=== PATIENT | male | born 1970 | race Caucasian/White ===

== ENCOUNTER 2019-01-04 10:26 | Emergency (ER) | payer SELFPAY ==
[2019-01-04] MEDS ORDERED: MORPHINE SULFATE 10 MG/ML INJ IV ONE (11:01)
[2019-01-04] MEDS ORDERED: NORMAL SALINE 1000 ML 1,000 ML IV ONE (11:01)
[2019-01-04] MEDS ORDERED: ONDANSETRON HCL INJ/PF 4 MG/2 ML SDV IV ONE (11:01)
--- NOTE | 2019-01-04 11:03 | ER Document Report ---
ED Medical Screen (RME) - General Chief Complaint: Abdominal Pain Stated Complaint: ABDOMINAL PAIN Time Seen by Provider: 01/04/19 10:56 Primary Care Provider: COLE RIOS MD [Primary Care Provider] - Follow up as needed Mode of Arrival: Ambulatory Information source: Patient Notes: HPI: 48-year-old male with the listed pmh, here for ruq and rlq abdominal pain worsening for 2 days along with some nausea and nonbloody nonbilious vomiting, nonbloody diarrhea, and low grade fevers. states pain radiates posteriorly. he ate some fried fatty foods and made sx worse. no trauma or injury. no hx of diabetes or asthma. no uti sx. no testicular pain/swelling, penile dc/rash/lesions, or concerns for stds. denies swelling or hx of hernias. no abd surgeries other than a remote gastric bypass. no recent abx or steroids. hasn't taken anything for sx. no hx of gerd, gb dz, panceratitis, gi bleed, ulcers, ibs, or crohns. no hx of this before. no sick contacts. no uri sx. no rash. no excessive nsaid use or etoh. no recent illness. pain worse with eating. no other associated sx. denies taking any meds chronically. denies blood thinners. ROS neg to include 10 systems, unless mentioned in the hpi. PE:>>>> PHYSICAL_EXAM: GENERAL_APPEARANCE: well_nourished, alert, cooperative, no_acute_distress, mild_obvious_discomfort. pleasant, middle aged white male, smiling, speaking in full sentences, in no sign of pain or resp distress, at bedside VITALS: reviewed, see vital signs table. HEAD: no_swelling\tenderness on the head. normocephalic. atraumatic. no gutiérrez signs. no raccoons eyes. EYES: PERRL, EOMI, conjunctiva_clear. no scleral icterus NOSE: no_nasal_discharge. MOUTH: (-)decreased moisture. THROAT: no_tonsilar_inflammation, no_airway_obstruction. no_lymphadenopathy NECK: supple, no_neck_tenderness, full rom. full strength. no meningeal signs. BACK: no_back_tenderness. CHEST_WALL: no_chest_tenderness. no overlying skin changes LUNGS: no_wheezing, ctab (-)accessory muscle use, good air exchange bilateral. HEART: normal_rate, normal_rhythm, ABDOMEN: normal_BS, soft, mod ttp in the RUQ, mild ttp in the RLQ, (-)guar ding, (-)rebound, no distension or peritoneal signs. no cva ttp. questionably pos murphys sign. exam limited as pt seen in triage and was sitting and not able to perform abd exam with pt laying down. EXTREMITIES: strength 5/5 in all_extremities, good pulses in all_extremities, no_swelling\tenderness in the extremities, no_edema. full rom. normal gait. good pulses. 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 NEURO: motor and sensation intact, cranial nerves 2-12 intact, cerebellar fxn intact SKIN: warm, dry, good_color, no_rash. MENTAL_STATUS: speech_clear, oriented_X_3, normal_affect, responds_a ppropriately to questions. MDM: I have ordered labs and initial work-up and patient will be transferred to the main ER for further work-up. I have greeted and performed a rapid initial assessment of this patient. A comprehensive ED assessment and evaluation of the patient, analysis of test results and completion of medical decision making process will be conducted by an additional ED providers. Documentation achieved through voice recording which my lead to some occasional accidental typographical errors. Extensive efforts have been made to proof read documentation to make sure these are the least as possible Temp Pulse Resp BP Pulse Ox 01/04/19 10:30 98.3 F 78 13 138/81 H 100 Category Date Time Status NPO (ED) NOW Care 01/04/19 11:01 Active Gallbladder Ultrasound [U/S ABDOMEN LIMITED W/O DOP] [ Exams 01/04/19 11:02 Ordered US] Stat CBC WITH DIFF [HEME] Stat Lab 01/04/19 11:01 Ordered COMPREHENSIVE METABOLIC PANEL [CHEM] Stat Lab 01/04/19 11:01 Ordered LIPASE [CHEM] Stat Lab 01/04/19 11:01 Ordered URINALYSIS [URIN] Stat Lab 01/04/19 11:01 Uncollected Morphine Sulfate [Morphine 10 mg/ml Inj] Med 01/04/19 11:01 Discontinued 4 mg IV NOW ONE Normal Saline 1000 ml [NaCl 0.9% 1000 ml IV Soln] 1,000 Med 01/04/19 11:01 Discontinued ml IV BOLUS Ondansetron HCl/Pf [Zofran Inj/Pf 4 mg/2 ml Sdv] Med 01/04/19 11:01 Discontinued 4 mg IV NOW ONE TRAVEL OUTSIDE OF THE [place] IN LAST 30 DAYS: No - Related Data Allergies/Adverse Reactions: No Known Allergies Allergy (Verified 01/04/19 10:26) Past Medical History Past Surgical History: Reports: Hx Gastric Bypass Surgery Physical Exam - Vital signs Vitals: Temp Pulse Resp BP Pulse Ox 98.3 F 78 13 138/81 H 100 01/04/19 10:30 01/04/19 10:30 01/04/19 10:30 01/04/19 10:30 01/04/19 10:30 Course - Vital Signs Vital signs: Temp Pulse Resp BP Pulse Ox 98.3 F 78 13 138/81 H 100 01/04/19 10:30 01/04/19 10:30 01/04/19 10:30 01/04/19 10:30 01/04/19 10:30 Doctor's Discharge - Discharge Referrals: COLE RIOS MD [Primary Care Provider] - Follow up as needed
[2019-01-04 11:41] LABS: HEMATOCRIT 33.2 % (37.9-51.0); HEMOGLOBIN 10.1 g/dL (13.5-17.0); MEAN CORPUSCULAR HEMOGLOBIN 19.1 pg (27.0-33.4); MEAN CORPUSCULAR HGB CONC 30.4 g/dL (32.0-36.0); PLATELET COUNT 366 10^3/uL (150-450); RED BLOOD COUNT 5.29 10^6/uL (4.35-5.55); RED CELL DISTRIBUTION WIDTH 18.5 % (11.5-14.0); WHITE BLOOD COUNT 15.4 10^3/uL (4.0-10.5)
[2019-01-04 11:43] LABS: MEAN CORPUSCULAR VOLUME 63 fl (80-97)
--- NOTE | 2019-01-04 11:45 | ER Document Report ---
ED General - General Chief Complaint: Abdominal Pain Stated Complaint: ABDOMINAL PAIN Time Seen by Provider: 01/04/19 10:56 Primary Care Provider: COLE RIOS MD [ACTIVE STAFF] - Follow up as needed Mode of Arrival: Ambulatory Notes: 48-year-old male presents emergency department complaining of stabbing right upper quadrant pain since Thursday associated with nausea. Patient states that onset after eating some fried seafood and he was worried that it might be food poisoning however when the pain persisted he is now worried it might be his gallbladder. Patient did think it was may be related to constipation and he only had a small bowel movement yesterday morning so that he took magnesium citrate and now he has had a large amount of liquid stool but it has not improved his pain. Admits sweats and chills, denies documented fever. Denies history of pancreatitis or gallbladder problems. TRAVEL OUTSIDE OF THE [place] IN LAST 30 DAYS: No - Related Data Allergies/Adverse Reactions: No Known Allergies Allergy (Verified 01/04/19 10:26) Past Medical History - General Information source: Patient - Social History Smoking Status: Never Smoker Frequency of alcohol use: None Drug Abuse: None Family History: None Patient has suicidal ideation: No Patient has homicidal ideation: No Renal/ Medical History: Denies: Hx Peritoneal Dialysis Past Surgical History: Reports: Hx Gastric Bypass Surgery - Nas-en-Y Review of Systems - Review of Systems Constitutional: See HPI, Chills, Diaphoresis EENT: No symptoms reported Gastrointestinal: See HPI Genitourinary: No symptoms reported -: Yes All other systems reviewed and negative Physical Exam - Vital signs Vitals: Temp Pulse Resp BP Pulse Ox 98.3 F 78 13 138/81 H 100 01/04/19 10:30 01/04/19 10:30 01/04/19 10:30 01/04/19 10:30 01/04/19 10:30 - Notes Notes: GENERAL: Alert, interacts well. No acute distress. HEAD: Normocephalic, atraumatic EYES: Pupils equal, round and reactive to light, extraocular movements intact. ENT: Oral mucosa moist, tongue midline. NECK: Full range of motion, supple, trachea midline. LUNGS: Clear to auscultation bilaterally, no wheezes, rales or rhonchi, no respiratory distress. HEART: Regular rate and rhythm, no murmurs, gallops, rubs. ABDOMEN: Soft, right upper quadrant tenderness palpation without guarding, rigidity or rebounding, nondistended, bowel sounds present in all 4 quadrants. EXTREMITIES: Moves all 4 extremities spontaneously, no edema, radial and dorsalis pedis pulses 2/4 bilaterally. No cyanosis. NEUROLOGICAL: Alert and oriented x3, normal speech. PSYCH: Normal mood, normal affect. SKIN: Warm, Dry, normal turgor, no rashes or lesions noted. Course - Re-evaluation Re-evalutation: 01/04/19 13:11 CBC shows leukocytosis of 15.4, hemoglobin shows anemia with hemoglobin 10.1, platelets normal, urinalysis shows elevated creatinine at 1.73, normal creatin bharath available, lipase normal, urinalysis shows trace ketones, large blood, trace leukocyte esterase, greater than 182 WBCs. No evidence of active infection. Abdominal ultrasound does not show any problem with the gallbladder but there is some fullness the right renal pelvis without calyceal dilation. This is consistent when combined with the urine with a kidney stone which is likely causing the pain. No evidence of true obstruction, no indication for CT scan at this time. Patient will be provided with pain control, Flomax and other symptomatic relief medication and discharged home. - Vital Signs Vital signs: Temp Pulse Resp BP Pulse Ox 98.3 F 78 17 141/79 H 100 01/04/19 10:30 01/04/19 10:30 01/04/19 13:00 01/04/19 13:00 01/04/19 10:30 - Laboratory Result Diagrams: 01/04/19 11:30 01/04/19 11:30 Laboratory results interpreted by me: 01/04/19 01/04/19 01/04/19 11:30 11:30 12:30 WBC 15.4 H Hgb 10.1 L Hct 33.2 L MCV 63 L MCH 19.1 L MCHC 30.4 L RDW 18.5 H Seg Neuts % (Manual) 85 H Lymphocytes % (Manual) 2 L Abs Neuts (Manual) 13.1 H Abs Lymphs (Manual) 0.3 L Abs Monocytes (Manual) 2.0 H Creatinine 1.73 H Est GFR ( Amer) 51 L Est GFR (Non-Af Amer) 42 L Glucose 113 H Urine Protein 30 H Urine Ketones TRACE H Urine Blood LARGE H Ur Leukocyte Esterase TRACE H Urine Ascorbic Acid 40 H Discharge - Discharge Clinical Impression: Right ureteral calculus Condition: Stable Disposition: HOME, SELF-CARE Additional Instructions: Kidney Stone You are passing or have passed a kidney stone. These stones are usually due to increased calcium or uric acid concentrations in your urine. Stones within the kidney itself are not painful. The pain occurs as the stone leaves the kidney to pass down the long tube, called the ureter, leading to the bladder. If the stone is small, it will usually pass by itself. Most patients can pass the stone at home. You will usually receive medications for pain, nausea or vomiting, and sometimes a medication to assist in passing the kidney stone. However, if the pain is very severe or if vomiting prevents you from taking oral pain medications, you may need to return for further treatment. Drink three or four quarts of fluids per day. You will be given pain medication (if needed) and urine strainers. Strain all your urine to see if the stone passes. If your doctor has asked you to bring the stone in for analysis, return with the stone once it has passed. Return if pain or vomiting become severe, if you develop a high fever, if you are unable to pass your urine, or if other unusual symptoms occur. Please take ibuprofen 800 mg every 8 hours to help decrease your pain. If you continue to have pain despite taking this medication you may use the Percocet 1 tablet every 4 hours as needed for severe breakthrough pain. I have also prescribed you Zofran and Phenergan to help with the nausea. You should also take Pyridium, this is the same thing as Azo which is available [id number], it will help to numb your kidneys, ureters and bladder to decrease the pain as the stone moves. Finally we have prescribed Flomax, typically this is used to treat prostate problems but in this case may use it to help expand your ureters to help the kidney stone will pass more quickly. Please return to the emergency department for worsening pain, temperature of 100.4 greater or any new or concerning symptoms. Prescriptions: Ondansetron [Zofran Odt 4 mg Tablet] 1 - 2 tab PO Q4HP PRN #10 tab.rapdis PRN Reason: Ibuprofen [Motrin 800 mg Tablet] 800 mg PO Q8H PRN #30 tab PRN Reason: Oxycodone HCl/Acetaminophen [Percocet 5-325 mg Tablet] 1 - 2 tab PO Q4H PRN #15 tablet PRN Reason: Phenazopyridine HCl [Pyridium 200 mg Tablet] 200 mg PO TID #15 tablet Tamsulosin HCl [Flomax 0.4 mg Cap.sr] 0.4 mg PO DAILY #7 cap.sr.24h Referrals: COLE RIOS MD [ACTIVE STAFF] - Follow up as needed MYRIAM BENAVIDES MD [NO LOCAL MD] - Follow up as needed
[2019-01-04 12:07] LABS: ABSOLUTE LYMPHOCYTES# (MANUAL) 0.3 10^3/uL (0.5-4.7); BASOPHILS % (MANUAL) 0 % (0-2); EOSINOPHILS % (MANUAL) 0 % (0-6); LYMPHOCYTES % (MANUAL) 2 % (13-45); MONOCYTES % (MANUAL) 13 % (3-13); SEGMENTED NEUTROPHILS % (MAN) 85 % (42-78); TOTAL CELLS COUNTED 100
[2019-01-04 12:09] LABS: ALBUMIN 4.7 g/dL (3.5-5.0); ALKALINE PHOSPHATASE 58 U/L (38-126); ANION GAP 10 (5-19); ANISOCYTOSIS 1+; ASPARTATE AMINO TRANSFERASE 32 U/L (17-59); BILIRUBIN,DIRECT 0.2 mg/dL (0.0-0.4); BILIRUBIN,TOTAL 0.6 mg/dL (0.2-1.3); BLOOD UREA NITROGEN 16 mg/dL (7-20); CALCIUM 9.3 mg/dL (8.4-10.2); CARBON DIOXIDE 26 mmol/L (22-30); CHLORIDE 101 mmol/L (98-107); GLUCOSE 113 mg/dL (75-110); HYPOCHROMASIA 2+; OVALOCYTES 1+; POIKILOCYTOSIS SLIGHT; POLYCHROMASIA SLIGHT; POTASSIUM 3.8 mmol/L (3.6-5.0); TEAR DROP CELLS SLIGHT; TOTAL PROTEIN 7.7 g/dL (6.3-8.2)
[2019-01-04 12:16] LABS: PLATELET COMMENT ADEQUATE
--- NOTE | 2019-01-04 12:35 | RADIOLOGY REPORT (SQ) ---
EXAM DESCRIPTION: U/S ABDOMEN LIMITED W/O DOP COMPLETED DATE/TIME: 01/04/2019 12:23 pm REASON FOR STUDY: ruq abd pain COMPARISON: None. TECHNIQUE: Dynamic and static grayscale images acquired of the abdomen and recorded on PACS. Additio nal selected color Doppler and spectral images recorded. LIMITATIONS: Limited visualization secondary to scan window FINDINGS: PANCREAS: Not visualized. LIVER: No masses. Echotexture normal. LIVER VASCULATURE: Normal directional flow of the main portal vein and hepatic veins. GALLBLADDER: No stones. Normal wall thickness. No pericholecystic fluid. ULTRASOUND-DETECTED CHILDERS'S SIGN: Negative. INTRAHEPATIC DUCTS AND COMMON DUCT: CBD and intrahepatic ducts normal caliber. No filling defects. INFERIOR VENA CAVA: Normal flow. AORTA: No aneurysm. RIGHT KIDNEY: Kidney is normal in size measuring 11.7 cm. Mild fullness of the renal pelvis. No ca liceal dilation. No discrete mass. No calcifications. PERITONEAL AND RIGHT PLEURAL SPACE: No ascites or effusions. OTHER: No other significant findings. IMPRESSION: Mild fullness of the right renal pelvis without caliceal dilation. Otherwise, unremarkable right upper quadrant ultrasound. TECHNICAL DOCUMENTATION: JOB ID: [id number] [employer]- All Rights Reserved Reading location - IP/workstation name: [email or web address]
[2019-01-04 13:02] LABS: APPEARANCE,URINE SLIGHTLY-CLOUDY; BILIRUBIN,URINE NEGATIVE (NEGATIVE); COLOR,URINE YELLOW; GLUCOSE, URINE NEGATIVE (NEGATIVE); KETONES,URINE TRACE mg/dL (NEGATIVE); LEUKOCYTE ESTERASE,URINE TRACE (NEGATIVE); NITRITE,URINE NEGATIVE (NEGATIVE); PROTEIN,URINE 30 mg/dL (NEGATIVE); URINE SPECIFIC GRAVITY 1.023; UROBILINOGEN,URINE NEGATIVE mg/dL (<2.0)
[2019-01-04 13:03] VITALS: BP 141/79
[2019-01-04] MEDS ORDERED: KETOROLAC TROMETHAMINE INJ/PF 30 MG/1 ML SDV IV ONE (13:09)
== END 2019-01-04 13:57 | disposition home or self-care (01) ==
LOC: ER 10:26
DX: N20.1 Calculus of ureter (principal); R10.11 Right upper quadrant pain; R11.0 Nausea; R61 Generalized hyperhidrosis; R68.83 Chills (without fever); D64.9 Anemia, unspecified; D72.829 Elevated white blood cell count, unspecified; Z98.84 Bariatric surgery status
CPT/HCPCS: 36415; 87086; 83690; 85025; 80053; 81001; 76705; J1885; J2270; J2405; J7030; 96361; 96374; 96375; 99284

== ENCOUNTER 2019-02-19 17:33 | Emergency (ER) | payer SELFPAY ==
[2019-02-19] MEDS ORDERED: ONDANSETRON HCL INJ/PF 4 MG/2 ML SDV IV ONE (18:02)
[2019-02-19] MEDS ORDERED: HYDROMORPHONE HCL INJ/PF 2 MG/ML AMPULE IV ONE ×2 (18:02→21:33)
[2019-02-19] MEDS ORDERED: NORMAL SALINE 1000 ML 1,000 ML IV ONE (18:03)
--- NOTE | 2019-02-19 18:05 | ER Document Report ---
ED Medical Screen (RME) - General Chief Complaint: Abdominal Pain Stated Complaint: ABDOMINAL PAIN Time Seen by Provider: 02/19/19 18:01 Mode of Arrival: Wheelchair Information source: Patient Notes: Patient presents with epigastric right upper quadrant abdominal pain that started around 3 PM today. Patient diaphoretic in triage. Patient reports nausea and vomiting x5 episodes. Patient denies any fever or urinary symptoms. Patient does have a history of gastric bypass as well as kidney stones. I have greeted and performed a rapid initial assessment of this patient. A comprehensive ED assessment and evaluation of the patient, analysis of test results and completion of the medical decision making process will be conducted by additional ED providers. TRAVEL OUTSIDE OF THE [place] IN LAST 30 DAYS: No - Related Data Allergies/Adverse Reactions: No Known Allergies Allergy (Verified 01/04/19 10:26) Past Medical History - Social History Chew tobacco use (# tins/day): No Frequency of alcohol use: None Drug Abuse: None Renal/ Medical History: Denies: Hx Peritoneal Dialysis Past Surgical History: Reports: Hx Gastric Bypass Surgery - Nas-en-Y Physical Exam - Vital signs Vitals: Temp Pulse Resp BP Pulse Ox 97.2 F 86 22 H 121/85 100 02/19/19 17:41 02/19/19 17:41 02/19/19 17:41 02/19/19 17:41 02/19/19 17:41 - General General appearance: Alert, Anxious In distress: Moderate Notes: Right upper quadrant abdominal tenderness, patient guarding Course - Re-evaluation Re-evalutation: 02/19/19 18:[address] Glez who recommends obtaining abdominal series films prior to the CT scan imaging - Vital Signs Vital signs: Temp Pulse Resp BP Pulse Ox 97.2 F 86 22 H 121/85 100 02/19/19 17:41 02/19/19 17:41 02/19/19 17:41 02/19/19 17:41 02/19/19 17:41
[2019-02-19 18:36] LABS: ABSOLUTE EOSINOPHILS # (AUTO) 0.1 10^3/uL (0.0-0.6); ABSOLUTE LYMPHOCYTES (AUTO) 0.6 10^3/uL (0.5-4.7); ABSOLUTE MONOCYTES (AUTO) 0.5 10^3/uL (0.1-1.4); BASOPHILS % (AUTO) 0.2 % (0-2); EOSINOPHILS % (AUTO) 0.5 % (0-6); HEMATOCRIT 29.5 % (37.9-51.0); HEMOGLOBIN 8.9 g/dL (13.5-17.0); LYMPHOCYTES % (AUTO) 6.1 % (13-45); MEAN CORPUSCULAR HEMOGLOBIN 19.3 pg (27.0-33.4); MEAN CORPUSCULAR HGB CONC 30.2 g/dL (32.0-36.0); MONOCYTES % (AUTO) 4.6 % (3-13); PLATELET COUNT 409 10^3/uL (150-450); RED CELL DISTRIBUTION WIDTH 18.7 % (11.5-14.0); SEGMENTED NEUTROPHILS % (AUTO) 88.6 % (42-78); TOTAL CELLS COUNTED % (AUTO) 100 %; WHITE BLOOD COUNT 10.1 10^3/uL (4.0-10.5)
[2019-02-19 18:39] LABS: MEAN CORPUSCULAR VOLUME 64 fl (80-97)
[2019-02-19 18:46] LABS: ALBUMIN 4.6 g/dL (3.5-5.0); ALKALINE PHOSPHATASE 72 U/L (38-126); ANION GAP 14 (5-19); ASPARTATE AMINO TRANSFERASE 29 U/L (17-59); BILIRUBIN,DIRECT 0.2 mg/dL (0.0-0.4); BILIRUBIN,TOTAL 0.4 mg/dL (0.2-1.3); BLOOD UREA NITROGEN 13 mg/dL (7-20); CALCIUM 9.4 mg/dL (8.4-10.2); CARBON DIOXIDE 23 mmol/L (22-30); CHLORIDE 102 mmol/L (98-107); GLUCOSE 159 mg/dL (75-110); TOTAL PROTEIN 7.5 g/dL (6.3-8.2)
[2019-02-19 18:53] LABS: POTASSIUM 4.1 mmol/L (3.6-5.0)
--- NOTE | 2019-02-19 19:00 | RADIOLOGY REPORT (SQ) ---
EXAM DESCRIPTION: ACUTE ABDOMEN SERIES COMPLETED DATE/TIME: 02/19/2019 6:45 pm REASON FOR STUDY: epig/RUQ pain COMPARISON: None. NUMBER OF VIEWS: Three views. TECHNIQUE: Frontal chest, supine abdomen and upright abdomen radiographic images acquired. LIMITATIONS: None. FINDINGS: CHEST: Normal heart. The pulmonary vasculature is normal. No acute infiltrates or effusi ons. FREE AIR: None. No abnormal gas collections. BOWEL GAS PATTERN: There is scattered gas and fecal material within the colon. Scattered small bowel gas is seen. There is mild prominence of loops of small bowel centrally. The possibility of an ile us would not be excluded. No pneumoperitoneum. CALCIFICATIONS: No suspicious calcifications. HARDWARE: None in the abdomen. SOFT TISSUES: No gross mass or suggestion of organomegaly. BONES: Lumbar spondylosis is noted. . OTHER: No other significant finding. IMPRESSION: Findings suggestive of an ileus pattern. TECHNICAL DOCUMENTATION: JOB ID: [id number] [employer]- All Rights Reserved Reading location - IP/workstation name: [email or web address]
[2019-02-19 19:07] LABS: ANISOCYTOSIS 2+; HYPOCHROMASIA 1+; OVALOCYTES 1+; PLATELET COMMENT ADEQUATE; PLATELET GIANT PRESENT; PLATELET LARGE PRESENT; POIKILOCYTOSIS SLIGHT
--- NOTE | 2019-02-19 19:11 | ER Document Report ---
ED General - General Chief Complaint: Abdominal Pain Stated Complaint: ABDOMINAL PAIN Time Seen by Provider: 02/19/19 18:01 Mode of Arrival: Wheelchair TRAVEL OUTSIDE OF THE [place] IN LAST 30 DAYS: No - HPI Notes: Patient presents with onset of mid abdominal pain that started approximately after lunch today and has become worse. He denies any recent fevers. He has had several bouts of nausea and vomiting today. He denies any dysuria. He denies any chest pain or shortness of breath. - Related Data Allergies/Adverse Reactions: No Known Allergies Allergy (Verified 01/04/19 10:26) Past Medical History - General Information source: Patient - Social History Smoking Status: Never Smoker Chew tobacco use (# tins/day): No Frequency of alcohol use: None Drug Abuse: None Family History: None Patient has suicidal ideation: No Patient has homicidal ideation: No Renal/ Medical History: Denies: Hx Peritoneal Dialysis Past Surgical History: Reports: Hx Gastric Bypass Surgery - Nas-en-Y Review of Systems - Review of Systems Constitutional: No symptoms reported EENT: No symptoms reported Cardiovascular: No symptoms reported Respiratory: No symptoms reported Gastrointestinal: See HPI Genitourinary: No symptoms reported Male Genitourinary: No symptoms reported Musculoskeletal: No symptoms reported Skin: No symptoms reported Hematologic/Lymphatic: No symptoms reported Neurological/Psychological: No symptoms reported Physical Exam - Vital signs Vitals: Temp Pulse Resp BP Pulse Ox 97.2 F 86 22 H 121/85 100 02/19/19 17:41 02/19/19 17:41 02/19/19 17:41 02/19/19 17:41 02/19/19 17:41 - General General appearance: Appears well, Alert - HEENT Head: Normocephalic, Atraumatic Eyes: Normal Pupils: PERRL - Respiratory Respiratory status: No respiratory distress Chest status: Nontender Breath sounds: Normal Chest palpation: Normal - Cardiovascular Rhythm: Regular Heart sounds: Normal auscultation Murmur: No - Abdominal Inspection: Normal Distension: No distension Bowel sounds: Normal Tenderness: Other - Tenderness to palpation mainly in the mid abdominal region directly above the umbilicus - Back Back: Normal, Other - CVA tenderness on the left - Extremities General upper extremity: Normal inspection, Normal ROM General lower extremity: Normal inspection, Normal ROM - Neurological Neuro grossly intact: Yes Cognition: Normal Orientation: AAOx4 - Psychological Associated symptoms: Normal affect Course - Re-evaluation Re-evalutation: 02/20/19 00:19 CT abdomen shows no evidence of obstruction. Patient does have a large amount of gas in his large and small intestine. He does state he takes simethicone daily has not taken it today. Simethicone was provided twice in the ED with some relief of his discomfort. Ultrasound gallbladder did show sludge and gallstones but no signs of Christi cystitis. Findings were discussed with the patient. His labs are within normal limits are nonsignificant and his vitals are within normal limits as well. Letitia findings with patient. Provided surgery referral for known cholelithiasis. He is instructed to continue taking simethicone as directed. Is also to eat a clear diet for the next 2 to 3 days to see if this helps improve his symptoms. Is also provide Zofran as an antibiotic. Return precautions provided patient verbalized understood with plan. 02/20/19 00:25 Of note, patient's heart rate has been in the 70s to 80s after initial EKG was 116. - Vital Signs Vital signs: Temp Pulse Resp BP Pulse Ox 97.2 F 86 19 131/68 H 98 02/19/19 17:41 02/19/19 17:41 02/20/19 00:01 02/20/19 00:01 02/20/19 00:01 - Laboratory Result Diagrams: 02/19/19 18:05 02/19/19 18:05 Laboratory results interpreted by me: 02/19/19 02/19/19 02/19/19 18:05 18:05 19:57 Hgb 8.9 L Hct 29.5 L MCV 64 L MCH 19.3 L MCHC 30.2 L RDW 18.7 H Lymph % (Auto) 6.1 L Absolute Neuts (auto) 9.0 H Seg Neutrophils % 88.6 H Glucose 159 H Urine Protein 30 H Urine Ketones 20 H - Diagnostic Test Radiology reviewed: Reports reviewed - EKG Interpretation by Me EKG shows normal: Sinus rhythm Rate: Normal, Tachycardia Rhythm: NSR Discharge - Discharge Clinical Impression: Abdominal pain Qualifiers: Abdominal location: generalized Qualified Code(s): R10.84 - Generalized abdominal pain Condition: Good Disposition: HOME, SELF-CARE Instructions: Abdominal Pain ([facility]), Gallbladder Disease ([facility]) Additional Instructions: Please take your simethicone as prescribed. You provide Zofran for nausea. Ple ase eat clear diet for the next 2 to 3 days to see if this helps clear your symptoms. You were provided to the surgery referral due to your gallstones Prescriptions: Ondansetron [Zofran Odt 4 mg Tablet] 1 tab PO Q4H PRN #15 tab.rapdis PRN Reason: For Nausea/Vomiting
[2019-02-19 20:31] LABS: APPEARANCE,URINE CLOUDY; BILIRUBIN,URINE NEGATIVE (NEGATIVE); COLOR,URINE YELLOW; GLUCOSE, URINE NEGATIVE (NEGATIVE); KETONES,URINE 20 mg/dL (NEGATIVE); LEUKOCYTE ESTERASE,URINE NEGATIVE (NEGATIVE); NITRITE,URINE NEGATIVE (NEGATIVE); PROTEIN,URINE 30 mg/dL (NEGATIVE); URINE SPECIFIC GRAVITY 1.019; UROBILINOGEN,URINE NEGATIVE mg/dL (<2.0)
--- NOTE | 2019-02-19 21:25 | RADIOLOGY REPORT (SQ) ---
EXAM DESCRIPTION: [facility]: CT ABDOMEN PELVIS WITH IV CONTRAST CLINICAL HISTORY: 48 years Male; epig, RUQ pain TECHNIQUE: CT of the abdomen and pelvis using intravenous contrast. All CT scans at this facility use dose modulation, iterative reconstruction, and/or weight based dosing when appropriate to reduce radiation dose to as low as reasonably achievable. COMPARISON: Right upper quadrant ultrasound 01/04/2019. No previous CT. FINDINGS: Abdomen: There is a diverticulum projecting posteriorly from the proximal stomach. No adjacent edema. Staple lines are noted. Liver:No focal lesions. No intrahepatic ductal distention. Gallbladder: Distended, 5.4 cm diameter. No adjacent edema. Pancreas:Within normal limits Spleen:Within normal limits Right kidney:No hydronephrosis. No focal lesion. Left kidney:No hydronephrosis. No focal lesion. Adrenal glands:Within normal limits Vascular structures:Within normal limits Pelvis: Small bowel: Oral contrast is seen in much of the proximal small bowel. There is increased gas, but no transition point or significant small bowel distention. Appendix: Not reliably identified. No regional edema. Colon: Mild fecal retention, without significant distention. No acute pericolonic edema. No free intraperitoneal fluid or air. Bones: No acute bone findings. Bladder: Unremarkable. No pelvic mass or adenopathy. IMPRESSION: 1. Somewhat distended gallbladder, but no pericholecystic edema. 2. Previous gastric surgery. 3. No bowel obstruction or perforation. 4. No acute inflammatory changes.
[2019-02-19] MEDS ORDERED: SIMETHICONE 80 MG TAB.CHEW PO ONE ×2 (21:33→23:41)
--- NOTE | 2019-02-20 | RADIOLOGY REPORT (SQ) ---
EXAM DESCRIPTION: US ABDOMEN LIMITED COMPLETED DATE/TME: 02/19/2019 21:32 CLINICAL HISTORY: 48 years, Male, ruq pain COMPARISON: CT performed earlier the same day TECHNIQUE: Axial 2-D grayscale images of the abdomen were acquired. Doppler was utilized. LIMITATIONS: None. FINDINGS: The pancreas and abdominal aorta were obscured by overlying bowel gas. The liver is normal in echogenicity. It measures 15.2 cm in length. Antegrade flow is documented within the main portal vein. Gallbladder wall thickness measures 2 to 3 mm. Sonographic Mejía sign was positive. A few mobile echogenic foci are noted about the gallbladder lumen, indicating a combination of sludge and stones. No pericholecystic free fluid. Common bile duct and measures 7 mm. Right kidney measures 11.9 x 5.8 x 5.4 cm in size. No hydronephrosis. IMPRESSION: Cholelithiasis with positive sonographic Mejía sign. Overall, this combination of findings is nonspecific in the absence other ancillary findings of cholecystitis, such as gallbladder wall thickening and pericholecystic free fluid. If confirmation is desired, HIDA scan would be useful. copyright 2010 [employer]- All Rights Reserved
[2019-02-20 00:10] VITALS: BP 131/68
--- NOTE | 2019-02-21 00:51 | EKG REPORT ---
SEVERITY:- NORMAL ECG - SINUS RHYTHM : Confirmed by: Sohail Alcaraz 21-Feb-2019 00:50:36
[2019-02-21 11:49] LABS: PATH REVIEW PATHOLOGIST REVIEWED
== END 2019-02-20 00:39 | disposition home or self-care (01) ==
LOC: ER 17:33
DX: K80.20 Calculus of gallbladder without cholecystitis without obstruction (principal); R10.84 Generalized abdominal pain; R10.815 Periumbilic abdominal tenderness; R11.2 Nausea with vomiting, unspecified; Z98.84 Bariatric surgery status; Z79.899 Other long term (current) drug therapy
CPT/HCPCS: 93005; 96376; 99284; 96361; 96374; 96375; 36415; 83690; 85025; 80053; 81001; 74022; 76705; 74177; 93010; J1170; J2405; J7030

== ENCOUNTER 2019-02-20 18:02 | Inpatient (IN) | payer SELFPAY ==
[2019-02-20] MEDS ORDERED: ONDANSETRON 4 MG TAB.RAPDIS PO ONE (18:49)
[2019-02-20] MEDS ORDERED: NORMAL SALINE 1000 ML 1,000 ML IV ONE (18:50)
--- NOTE | 2019-02-20 18:51 | ER Document Report ---
ED Medical Screen (RME) - General Chief Complaint: Abdominal Pain Stated Complaint: ABDOMINAL PAIN Time Seen by Provider: 02/20/19 18:45 Mode of Arrival: Wheelchair Information source: Patient Notes: Patient presents complaining of nausea and vomiting with abdominal tenderness. Patient was just discharged yesterday for this complaint. Patient was told he had gallstones and sludge. Patient unable to tolerate oral fluids. I have greeted and performed a rapid initial assessment of this patient. A comprehensive ED assessment and evaluation of the patient, analysis of test results and completion of the medical decision making process will be conducted by additional ED providers. TRAVEL OUTSIDE OF THE [place] IN LAST 30 DAYS: No - Related Data Allergies/Adverse Reactions: No Known Allergies Allergy (Verified 02/20/19 18:40) Past Medical History - Social History Chew tobacco use (# tins/day): No Frequency of alcohol use: None Drug Abuse: None Renal/ Medical History: Denies: Hx Peritoneal Dialysis Past Surgical History: Reports: Hx Gastric Bypass Surgery - Nas-en-Y Physical Exam - Vital signs Vitals: Temp Pulse Resp BP Pulse Ox 98.8 F 115 H 18 101/65 100 02/20/19 18:14 02/20/19 18:14 02/20/19 18:14 02/20/19 18:14 02/20/19 18:14 - Abdominal Tenderness: Tender - Periumbilical, right side abdomen Course - Vital Signs Vital signs: Temp Pulse Resp BP Pulse Ox 98.8 F 115 H 18 101/65 100 02/20/19 18:14 02/20/19 18:14 02/20/19 18:14 02/20/19 18:14 02/20/19 18:14
[2019-02-20 19:50] LABS: HEMOGLOBIN 9.3 g/dL (13.5-17.0); MEAN CORPUSCULAR HGB CONC 30.1 g/dL (32.0-36.0); MEAN CORPUSCULAR VOLUME 63 fl (80-97); PLATELET COUNT 377 10^3/uL (150-450); RED BLOOD COUNT 4.91 10^6/uL (4.35-5.55); RED CELL DISTRIBUTION WIDTH 18.3 % (11.5-14.0)
[2019-02-20 19:55] LABS: WHITE BLOOD COUNT 26.9 10^3/uL (4.0-10.5)
[2019-02-20 20:03] LABS: ALBUMIN 4.3 g/dL (3.5-5.0); ALKALINE PHOSPHATASE 65 U/L (38-126); ANION GAP 13 (5-19); ASPARTATE AMINO TRANSFERASE 39 U/L (17-59); BILIRUBIN,DIRECT 0.2 mg/dL (0.0-0.4); BILIRUBIN,TOTAL 0.8 mg/dL (0.2-1.3); BLOOD UREA NITROGEN 15 mg/dL (7-20); CALCIUM 9.3 mg/dL (8.4-10.2); CARBON DIOXIDE 25 mmol/L (22-30); CHLORIDE 97 mmol/L (98-107); GLUCOSE 156 mg/dL (75-110); POTASSIUM 4.1 mmol/L (3.6-5.0); TOTAL PROTEIN 7.2 g/dL (6.3-8.2)
[2019-02-20 20:17] LABS: ABSOLUTE MONOCYTES # (MANUAL) 1.1 10^3/uL (0.1-1.4); BAND NEUTROPHILS % (MANUAL) 2 % (3-5); BASOPHILS % (MANUAL) 0 % (0-2); EOSINOPHILS % (MANUAL) 0 % (0-6); LYMPHOCYTES % (MANUAL) 0 % (13-45); MONOCYTES % (MANUAL) 4 % (3-13); SEGMENTED NEUTROPHILS % (MAN) 94 % (42-78); TOTAL CELLS COUNTED 100
[2019-02-20 20:19] LABS: ANISOCYTOSIS 1+; POIKILOCYTOSIS 1+
[2019-02-20 20:20] LABS: HYPOCHROMASIA 1+; OVALOCYTES 1+; PLATELET COMMENT ADEQUATE
--- NOTE | 2019-02-20 21:51 | RADIOLOGY REPORT (SQ) ---
EXAM DESCRIPTION: US ABDOMEN LIMITED COMPLETED DATE/TME: 02/20/2019 19:30 CLINICAL HISTORY: 48 years, Male, abd pain, hx gallstones COMPARISON: CT abdomen/pelvis performed the previous day TECHNIQUE: Axial 2-D grayscale images of the abdomen were acquired. Doppler was utilized. LIMITATIONS: None. FINDINGS: The pancreas and abdominal aorta were obscured by overlying bowel gas artifact. Liver is normal in echogenicity, measuring 14.8 cm in length. Antegrade flow is documented within the main portal vein. The gallbladder is distended. Gallbladder wall thickness measures 5 mm. Sonographic Mejía sign was positive. In addition, there is a suspected small amount of pericholecystic free fluid. A few mobile echogenic foci are suspected about the gallbladder lumen, indicating cholelithiasis. Common bile duct diameter measures 7 mm. Right kidney measures 12.3 x 5.0 x 5.5 cm in size. No hydronephrosis. IMPRESSION: Distended gallbladder, cholelithiasis, gallbladder wall thickening, mild pericholecystic free fluid, and positive sonographic Mejía's sign. Overall, these findings are compatible with acute cholecystitis. copyright 2010 [employer]- All Rights Reserved
[2019-02-20] MEDS ORDERED: MORPHINE SULFATE 10 MG/ML INJ IV ONE (22:36)
[2019-02-20] MEDS ORDERED: ONDANSETRON HCL INJ/PF 4 MG/2 ML SDV IV ONE (22:39)
[2019-02-20] MEDS ORDERED: PIPERACILLIN/TAZOBACTAM 3.375 GM VIAL IV ONE (22:41)
--- NOTE | 2019-02-20 22:48 | ER Document Report ---
ED General - General Chief Complaint: Abdominal Pain Stated Complaint: ABDOMINAL PAIN Time Seen by Provider: 02/20/19 18:45 Mode of Arrival: Wheelchair TRAVEL OUTSIDE OF THE [place] IN LAST 30 DAYS: No - HPI Notes: This is a 48-year-old gentleman who presents today with complaint of right upper quadrant and epigastric abdominal pain since yesterday. Patient describes symptoms as moderate. Seated symptoms include nausea and vomiting. He was seen yesterday and had a work-up which was significant for biliary colic. He was sent home because he was doing better. Patient states that he has been vomiting all day and his pain is gotten worse so he came back to the emergency dep artment. He denies any fever or chills. He denies any diarrhea constipation. There are no obvious aggravating or relieving factors. - Related Data Allergies/Adverse Reactions: No Known Allergies Allergy (Verified 02/20/19 18:40) Past Medical History - General Information source: Patient - Social History Smoking Status: Never Smoker Chew tobacco use (# tins/day): No Frequency of alcohol use: None Drug Abuse: None Family History: None Patient has suicidal ideation: No Patient has homicidal ideation: No Renal/ Medical History: Denies: Hx Peritoneal Dialysis Past Surgical History: Reports: Hx Gastric Bypass Surgery - Nas-en-Y Review of Systems - Review of Systems Cardiovascular: denies: Chest pain Respiratory: denies: Cough, Hurts to breathe Gastrointestinal: Abdominal pain, Nausea, Vomiting. denies: Diarrhea -: Yes All other systems reviewed and negative Physical Exam - Vital signs Vitals: Temp Pulse Resp BP Pulse Ox 98.8 F 115 H 18 101/65 100 02/20/19 18:14 02/20/19 18:14 02/20/19 18:14 02/20/19 18:14 02/20/19 18:14 - General General appearance: Appears well, Alert - Respiratory Respiratory status: No respiratory distress Chest status: Nontender Breath sounds: Normal Chest palpation: Normal - Cardiovascular Rhythm: Regular Heart sounds: Normal auscultation Murmur: No - Abdominal Inspection: Normal Distension: No distension Bowel sounds: Normal Tenderness: Tender - There is right upper quadrant tenderness. No guarding or rebound., Mejía's sign Organomegaly: No organomegaly - Neurological Neuro grossly intact: Yes Cognition: Normal Orientation: AAOx4 Vern Coma Scale Eye Opening: Spontaneous Vern Coma Scale Verbal: Oriented Bishop Coma Scale Motor: Obeys Commands Vern Coma Scale Total: 15 Speech: Normal Motor strength normal: LUE, RUE, LLE, RLE Sensory: Normal - Psychological Associated symptoms: Normal affect, Normal mood - Skin Skin Temperature: Warm Skin Moisture: Dry Skin Color: Normal Course - Re-evaluation Re-evalutation: 02/20/19 22:47 Clinical picture suggestive of acute cholecystitis. Labs and ultrasound done in triage reviewed. Consistent with my clinical suspicion. Patient's care discussed with Dr. Contreras. Will admit patient. - Vital Signs Vital signs: Temp Pulse Resp BP Pulse Ox 98.8 F 115 H 18 101/65 100 02/20/19 18:14 02/20/19 18:14 02/20/19 18:14 02/20/19 18:14 02/20/19 18:14 - Laboratory Result Diagrams: 02/20/19 19:25 02/20/19 19:25 Laboratory results interpreted by me: 02/20/19 02/20/19 19:25 19:25 WBC 26.9 H D Hgb 9.3 L Hct 31.0 L MCV 63 L MCH 19.0 L MCHC 30.1 L RDW 18.3 H Seg Neuts % (Manual) 94 H Band Neutrophils % 2 L Lymphocytes % (Manual) 0 L Abs Neuts (Manual) 25.8 H Abs Lymphs (Manual) 0.0 L Sodium 134.9 L Chloride 97 L Glucose 156 H Discharge - Discharge Clinical Impression: Acute calculous cholecystitis Condition: Stable Disposition: ADMITTED INPATIENT Admitting Provider: Surgicalist Unit Admitted: OR
[2019-02-21 01:26] LABS: APPEARANCE,URINE SLIGHTLY-CLOUDY; BILIRUBIN,URINE NEGATIVE (NEGATIVE); GLUCOSE, URINE NEGATIVE (NEGATIVE); KETONES,URINE TRACE mg/dL (NEGATIVE); LEUKOCYTE ESTERASE,URINE NEGATIVE (NEGATIVE); NITRITE,URINE NEGATIVE (NEGATIVE); PROTEIN,URINE 100 mg/dL (NEGATIVE); URINE SPECIFIC GRAVITY 1.027; UROBILINOGEN,URINE NEGATIVE mg/dL (<2.0)
[2019-02-21 01:27] LABS: COLOR,URINE DARK YELLOW
[2019-02-21] MEDS ORDERED: CEFAZOLIN 1 GM/D5W RTU 1 GM/50 ML RTUPB IV SCH (02:00)
[2019-02-21] MEDS ORDERED: POTASSI CL 20 MEQ/1/2NS 1L 1000 ML IV PRN (02:03)
[2019-02-21] MEDS ORDERED: ONDANSETRON HCL INJ/PF 4 MG/2 ML SDV IV PRN (02:04)
[2019-02-21] MEDS: METRONIDAZOLE 500 MG/NS RTU 500 MG/100 ML RTUPB IV SCH ×4 (03:04→21:27)
[2019-02-21] MEDS: MORPHINE SULFATE 10 MG/ML INJ IV PRN ×3 (03:05→10:47)
[2019-02-21] MEDS: CEFAZOLIN INJ 1 GM VIAL ONE ×2 (03:53→04:14)
[2019-02-21] MEDS ORDERED: GLUCAGON,HUMAN RECOMB 1 MG INJ SUBCUT PRN (05:50)
[2019-02-21] MEDS ORDERED: DEXTROSE 50%-WATER 25 GM/50 ML DISP.SYRIN IV PRN ×2 (05:50)
[2019-02-21] MEDS ORDERED: DEXTROSE 40% GEL 15 GM TUBE PO PRN ×2 (05:50)
--- NOTE | 2019-02-21 05:50 | PDOC H&P ---
History of Present Illness Admission Date/PCP: 02/20/19 23:03 This is a 48-year-old gentleman who presents today with complaint of right upper quadrant and epigastric abdominal pain since yesterday. Patient describes symptoms as moderate. Seated symptoms include nausea and vomiting. He was seen yesterday and had a work-up which was significant for biliary colic. He was sent home because he was doing better. Patient states that he has been vomiting all day and his pain is gotten worse so he came back to the emergency department. He denies any fever or chills. He denies any diarrhea constipation. There are no obvious aggravating or relieving factors. History of Present Illness: JOSÉ MIGUEL CONNELL is a 48 year old male Past Surgical History Past Surgical History: Reports: Gastric Bypass Surgery - Nas-en-Y Social History Smoking Status: Never Smoker Frequency of Alcohol Use: None Hx Recreational Drug Use: No Drugs: None Hx Prescription Drug Abuse: No - Advance Directive Resuscitation Status: Full Code Family History Family History: None Parental Family History Reviewed: No Children Family History Reviewed: NA Sibling(s) Family History Reviewed.: NA Medication/Allergy Home Medications: Ibuprofen [Motrin 800 mg Tablet] 800 mg PO Q8H PRN #30 tab 01/04/19 Allergies/Adverse Reactions: No Known Allergies Allergy (Verified 02/20/19 18:40) Review of Systems Constitutional: PRESENT: chills, fatigue Eyes: ABSENT: as per HPI, visual disturbances, other Ears: ABSENT: as per HPI, hearing changes, other Nose, Mouth, and Throat: ABSENT: as per HPI, headache(s), mouth pain, sore throat, vertigo, other Breasts: ABSENT: as per HPI, other Cardiovascular: ABSENT: as per HPI, chest pain, dyspnea on exertion, edema, orthropnea, palpitations, other Respiratory: ABSENT: as per HPI, cough, dyspnea, hemoptysis, sputum, other Gastrointestinal: PRESENT: abdominal pain, bloating, nausea, vomiting Genitourinary: ABSENT: as per HPI, difficulty urinating, dysuria, hematuria, nocturia, other Musculoskeletal: ABSENT: as per HPI, back pain, deformity, joint swelling, muscle weakness, other Integumentary: ABSENT: as per HPI, diaphoresis, erythema, lesions, pruritus, rash, wounds, other Neurological: ABSENT: as per HPI, abnormal gait, abnormal movements, abnormal speech, confusion, convulsions, dizziness, focal weakness, frequent falls, lack of coordination, memory loss, numbness, paresthesias, restless legs, syncope, tingling, tremor(s), vertigo, weakness, other Psychiatric: ABSENT: as per HPI, anxiety, depression, hallucinations, homidical ideation, suicidal ideation, other Hematologic/Lymphatic: ABSENT: as per HPI, easy bleeding, easy bruising, lymphadenopathy, other Allergic/Immunologic: ABSENT: as per HPI, seasonal rhinorrhea, other Physical Exam Vital Signs: Temp Pulse Resp BP Pulse Ox 100.8 F H 103 H 20 134/75 H 94 02/21/19 04:00 02/21/19 03:00 02/21/19 03:00 02/21/19 03:00 02/21/19 03:00 Intake & Output 02/19/19 02/20/19 02/21/19 06:59 06:59 06:59 Intake Total 1100 Balance 1100 Weight 92.8 kg General appearance: PRESENT: mild distress Head exam: PRESENT: normocephalic Eye exam: PRESENT: EOMI Ear exam: PRESENT: normal external ear exam Mouth exam: PRESENT: dry mucosa Neck exam: PRESENT: full ROM Respiratory exam: PRESENT: clear to auscultation morenita Cardiovascular exam: PRESENT: RRR Pulses: PRESENT: normal radial pulses, normal femoral pulses GI/Abdominal exam: PRESENT: guarding - tenderness and guarding in ruq, tenderness Rectal exam: PRESENT: deferred Extremities exam: PRESENT: full ROM Musculoskeletal exam: PRESENT: full ROM Neurological exam: PRESENT: alert, awake, oriented to person, oriented to place Psychiatric exam: PRESENT: appropriate affect Skin exam: PRESENT: dry Results Laboratory Results: 02/20/19 19:25 02/20/19 19:25 02/20/19 02/20/19 02/20/19 19:25 19:25 19:45 WBC 26.9 H D RBC 4.91 Hgb 9.3 L Hct 31.0 L MCV 63 L MCH 19.0 L MCHC 30.1 L RDW 18.3 H Plt Count 377 Seg Neutrophils % Not Reportable Sodium 134.9 L Potassium 4.1 Chloride 97 L Carbon Dioxide 25 Anion Gap 13 BUN 15 Creatinine 1.02 Est GFR ( Amer) > 60 Glucose 156 H Calcium 9.3 Total Bilirubin 0.8 AST 39 Alkaline Phosphatase 65 Total Protein 7.2 Albumin 4.3 Lipase 25.3 Urine Color DARK YELLOW Urine Appearance SLIGHTLY-CLOUDY Urine pH 7.0 Ur Specific [place] 1.027 Urine Protein 100 H Urine Glucose (UA) NEGATIVE Urine Ketones TRACE H Urine Blood NEGATIVE Urine Nitrite NEGATIVE Ur Leukocyte Esterase NEGATIVE Urine WBC (Auto) 3 Urine RBC (Auto) 2 Impressions: Abdomen Ultrasound 02/20/19 19:30 IMPRESSION: Distended gallbladder, cholelithiasis, gallbladder wall thickening, mild pericholecystic free fluid, and positive sonographic Mejía's sign. Overall, these findings are compatible with acute cholecystitis. copyright 2010 [employer]- All Rights Reserved Assessment & Plan - Diagnosis (2) Abdominal pain Is this a current diagnosis for this admission?: Yes - Inpatient Certification Medical Necessity: Need For IV Fluids, Need for IV Antibiotics, Need for Surgery - Plan Summary Plan Summary: pt with acute choleystitis will admit for iv hydration, abx and plan for surgery in am risk benifitis of cholecystectomy discussed, injury to adjacent structures,liver, bile duct, hepatic vessels small bowel, duodenum, stomach, colon and leak or abscess after surgery has been discussed need for open or additional surgery discussed retained stones, need for post op ercp discussed pt understnads and agrees to proceed.
[2019-02-21] MEDS: POTASSI CL 20 MEQ/D5-1/2NS 1L 1,000 ML IV PRN ×2 (06:31→16:13)
[2019-02-21] MEDS: HEPARIN SOD (PORCINE) 5,000 UNIT/ML 1 ML VIAL SUBCUT SCH ×3 (06:33→21:27)
[2019-02-21] MEDS ORDERED: NORMAL SALINE 1000 ML 1,000 ML IV ONE (06:53)
--- NOTE | 2019-02-21 09:56 | Progress Note ---
Provider Note Provider Note: Patient with acute cholecystitis. Risks and benefits of the procedure were discussed at length. The patient has agreed to laparoscopic cholecystectomy for definitive surgical treatment. All questions were answered, and informed consent was obtained.
[2019-02-21] MEDS: CEFAZOLIN SODIUM 1 GM in DEXTROSE 5%-WATER 50 ML IV SCH ×2 (10:46→18:07)
[2019-02-21] MEDS ORDERED: GLUCAGON,HUMAN RECOMB 1 MG INJ ONE (11:58)
[2019-02-21] MEDS ORDERED: BUPIVACAINE HCL 0.25 % INJ/PF (2.5 MG/1 ML) 30 ML VIAL ONE (11:58)
[2019-02-21] MEDS ORDERED: FENTANYL CITRATE INJ/PF 250 MCG/5 ML AMPULE ONE (12:21)
[2019-02-21] MEDS ORDERED: PROPOFOL INJ 200 MG/20 ML VIAL IV ONE (12:21)
[2019-02-21] MEDS ORDERED: MIDAZOLAM 2 MG/2 ML INJ ONE (12:21)
[2019-02-21] MEDS ORDERED: MEPERIDINE HCL/PF INJ 25 MG/1 ML DISP.SYRIN IV PRN (12:30)
[2019-02-21] MEDS ORDERED: FENTANYL CITRATE INJ/PF 100 MCG/2 ML AMPUL IV PRN ×3 (12:30)
[2019-02-21] MEDS ORDERED: DIPHENHYDRAMINE HCL 50 MG/ML VIAL IV PRN (12:30)
[2019-02-21] MEDS ORDERED: OXYCODONE-ACETAMINOPHEN 5-325 MG TABLET PO PRN ×2 (12:30)
[2019-02-21] MEDS ORDERED: PROMETHAZINE HCL INJ 25 MG/1 ML VIAL IV PRN ×2 (12:30)
[2019-02-21] MEDS ORDERED: HYDROMORPHONE HCL INJ/PF 2 MG/ML AMPULE ONE (14:14)
[2019-02-21] MEDS ORDERED: METRONIDAZOLE 500 MG/NS RTU 500 MG/100 ML RTUPB IV ONE (14:38)
--- NOTE | 2019-02-21 15:25 | Operative Report ---
Nonrecallable Operative Report DATE OF SURGERY: 02/21/19 PREOPERATIVE DIAGNOSIS: acute cholecystitis POSTOPERATIVE DIAGNOSIS: Acute, gangrenous, perforated cholecystitis OPERATION: Laparoscopic fenestrated subtotal cholecystectomy SURGEON: RONNIE CHAND ANESTHESIA: GA TISSUE REMOVED OR ALTERED: Gallbladder COMPLICATIONS: Unable to reach the cystic duct due to large amounts of inflammation. Subtotal fenestrated cholecystectomy performed due to this limitation. ESTIMATED BLOOD LOSS: 100 cc PROCEDURE: Drains/implants: 15 German round Gerardo drain in the gallbladder remnant. Procedure in detail: After informed consent was obtained, the patient was brought to the operating room and laid in the supine position. The area of the abdomen was prepped and draped in a normal sterile fashion. An incision was created in the supraumbilical position. Dissection was carried down to the fascia using sharp and blunt dissection. The linea alba fascia was incised sharply, the abdomen was entered sharply. The balloon trocar was inserted, and pneumoperitoneum was achieved. Immediately upon entering the abdomen there was noted to be a dense inflammatory reaction in the right upper quadrant. Head up and right side up patient positioning was achieved. A 5 mm port was placed in the subxiphoid position under direct laparoscopic visualization. 2 more 5 mm ports were placed in the right upper quadrant in similar fashion. Atraumatic graspers were then placed through the 5 mm ports. A distended, gangrenous, perforated gallbladder was identified. The gallbladder was retracted laterally. Blunt dissection was undertaken to free it from the surrounding tissues. This was reasonably successful. Unfortunately, there was a dense inflammatory reaction in the infundibulum, and adequate visualization of the infundibulum could not be obtained. Secondary to this, a dome down approach was preferred. The gallbla dder was freed from the liver using sharp and blunt dissection, as well as electrocautery. Once the infundibulum was reached, the gallbladder was amputated. The infundibulum remained. There was bleeding in the gallbladder wall. This was controlled with Endo clips. Next, hemostasis was achieved using electrocautery in the gallbladder fossa. The gallbladder was then placed into an Endo Catch bag and pulled out through the umbilicus. The camera was reinserted. The hilum was inspected. There was no obvious bile leakage from the gallbladder remnant. The mucosa was cauterized, and a 15 German round Gerardo drain was placed through the lateralmost trocar. It was situated in the gallbladder fossa, with the tip in the gallbladder remnant. The drain was sutured to the skin using 2-0 nylon suture. The abdomen was copiously irrigated and suctioned, until the effluent was clear. The 5 mm trochars were then removed under direct laparoscopic visualization. The supraumbilical trocar was removed, and pneumoperitoneum was relieved. The supraumbilical fascia was closed using 0 Vicryl suture in [id number] fashion. The overlying skin was closed using 4-0 Vicryl Rapide suture in subc uticular fashion. Dressings were placed, and the procedure was concluded. All sponge, instrument, and needle counts were correct x2. Condition: Stable.
[2019-02-21] MEDS ORDERED: ROCURONIUM BROMIDE INJ 50 MG/5 ML VIAL IV ONE (15:40)
[2019-02-21] MEDS ORDERED: ONDANSETRON HCL INJ/PF 4 MG/2 ML SDV ONE (15:40)
[2019-02-21] MEDS ORDERED: LIDOCAINE 2% INJ-PF (20 MG/ML) 2 ML AMPUL ONE (15:40)
[2019-02-21] MEDS ORDERED: PHENYLEPHRINE HCL INJ/PF 10 MG/1 ML SDV ONE (15:40)
[2019-02-21] MEDS ORDERED: DEXAMETHASONE SOD PHOSPHATE INJ 4 MG/1 ML VIAL ONE (15:40)
[2019-02-21] MEDS ORDERED: NEOSTIGMINE METHYLSULFATE 10 MG/10 ML VIAL ONE (15:40)
[2019-02-21] MEDS ORDERED: GLYCOPYRROLATE 1 MG/5 ML VIAL ONE (15:40)
[2019-02-21] MEDS ORDERED: MORPHINE SULFATE 10 MG/ML INJ IV PRN (15:51)
[2019-02-21] MEDS: FAMOTIDINE 20 MG TABLET PO SCH (21:27)
[2019-02-21] MEDS: KETOROLAC TROMETHAMINE INJ/PF 30 MG/1 ML SDV IV SCH (21:28)
[2019-02-22] MEDS: CEFAZOLIN SODIUM 1 GM in DEXTROSE 5%-WATER 50 ML IV SCH ×3 (02:14→18:33)
[2019-02-22] MEDS: METRONIDAZOLE 500 MG/NS RTU 500 MG/100 ML RTUPB IV SCH ×4 (02:51→21:47)
[2019-02-22] MEDS: POTASSI CL 20 MEQ/D5-1/2NS 1L 1,000 ML IV PRN ×2 (02:52→14:21)
[2019-02-22 04:50] LABS: HEMATOCRIT 23.6 % (37.9-51.0); MEAN CORPUSCULAR HEMOGLOBIN 19.3 pg (27.0-33.4); MEAN CORPUSCULAR HGB CONC 30.8 g/dL (32.0-36.0); MEAN CORPUSCULAR VOLUME 63 fl (80-97); PLATELET COUNT 232 10^3/uL (150-450); RED BLOOD COUNT 3.76 10^6/uL (4.35-5.55); RED CELL DISTRIBUTION WIDTH 18.7 % (11.5-14.0); WHITE BLOOD COUNT 19.5 10^3/uL (4.0-10.5)
[2019-02-22 05:03] LABS: HEMOGLOBIN 7.3 g/dL (13.5-17.0)
[2019-02-22 05:08] LABS: ALBUMIN 2.9 g/dL (3.5-5.0); ALKALINE PHOSPHATASE 69 U/L (38-126); ANION GAP 8 (5-19); ASPARTATE AMINO TRANSFERASE 69 U/L (17-59); BILIRUBIN,DIRECT 0.2 mg/dL (0.0-0.4); BILIRUBIN,TOTAL 0.3 mg/dL (0.2-1.3); BLOOD UREA NITROGEN 30 mg/dL (7-20); CARBON DIOXIDE 25 mmol/L (22-30); CHLORIDE 102 mmol/L (98-107); GLUCOSE 97 mg/dL (75-110); TOTAL PROTEIN 5.4 g/dL (6.3-8.2)
[2019-02-22 05:17] LABS: ABSOLUTE LYMPHOCYTES# (MANUAL) 0.4 10^3/uL (0.5-4.7); ABSOLUTE MONOCYTES # (MANUAL) 0.8 10^3/uL (0.1-1.4); ANISOCYTOSIS 1+; BAND NEUTROPHILS % (MANUAL) 4 % (3-5); BASOPHILS % (MANUAL) 0 % (0-2); EOSINOPHILS % (MANUAL) 0 % (0-6); LYMPHOCYTES % (MANUAL) 2 % (13-45); MONOCYTES % (MANUAL) 4 % (3-13); OVALOCYTES 2+; PLATELET COMMENT ADEQUATE; POIKILOCYTOSIS 2+; SEGMENTED NEUTROPHILS % (MAN) 90 % (42-78); TEAR DROP CELLS 1+; TOTAL CELLS COUNTED 100
[2019-02-22 05:18] LABS: PLATELET LARGE PRESENT
[2019-02-22 05:19] LABS: HYPOCHROMASIA 2+
[2019-02-22] MEDS: HEPARIN SOD (PORCINE) 5,000 UNIT/ML 1 ML VIAL SUBCUT SCH ×3 (06:07→21:56)
[2019-02-22] MEDS: KETOROLAC TROMETHAMINE INJ/PF 30 MG/1 ML SDV IV SCH ×3 (06:11→21:47)
--- NOTE | 2019-02-22 08:49 | PDOC PROGRESS REPORT ---
Subjective Progress Note for:: 02/22/19 Subjective:: Feels well but still requiring some IV pain medication. Tolerating liquids. Reason For Visit: ACUTE CHOLECYSTITIS Physical Exam Vital Signs: Temp Pulse Resp BP Pulse Ox 98.0 F 82 18 128/73 H 97 02/22/19 08:34 02/22/19 08:34 02/22/19 08:34 02/22/19 08:34 02/22/19 08:34 Intake & Output 02/21/19 02/22/19 02/23/19 06:59 06:59 06:59 Intake Total 1544 4300 Output Total 300 765 Balance 1244 3535 Weight 94.1 kg 96.7 kg General appearance: PRESENT: no acute distress, cooperative Respiratory exam: PRESENT: clear to auscultation morenita Cardiovascular exam: PRESENT: RRR GI/Abdominal exam: PRESENT: other - Soft, nondistended, moderate epigastric and right upper quadrant tenderness. Drain output is slightly blood-tinged nonbilious. Results Laboratory Results: 02/22/19 03:59 02/22/19 03:59 02/22/19 02/22/19 03:59 03:59 WBC 19.5 H RBC 3.76 L Hgb 7.3 L Hct 23.6 L MCV 63 L MCH 19.3 L MCHC 30.8 L RDW 18.7 H Plt Count 232 Seg Neutrophils % Not Reportable Sodium 134.5 L Potassium 5.0 Chloride 102 Carbon Dioxide 25 Anion Gap 8 BUN 30 H Creatinine 1.09 Est GFR ( Amer) > 60 Glucose 97 Calcium 8.0 L Total Bilirubin 0.3 AST 69 H Alkaline Phosphatase 69 Total Protein 5.4 L Albumin 2.9 L Impressions: Abdomen Ultrasound 02/20/19 19:30 IMPRESSION: Distended gallbladder, cholelithiasis, gallbladder wall thickening, mild pericholecystic free fluid, and positive sonographic Mejía's sign. Overall, these findings are compatible with acute cholecystitis. copyright 2011 [employer]- All Rights Reserved Assessment & Plan - Diagnosis (1) Acute calculous cholecystitis Is this a current diagnosis for this admission?: Yes Plan: Status post fenestrated subtotal cholecystectomy. Patient looks reasonably well but still requiring IV pain medication and with leukocytosis. We will keep the patient in the hospital another day for IV pain medication and IV antibiotics. Probable discharge to home tomorrow.
[2019-02-22] MEDS: HYDROCODONE/ACETAMINOPHEN 10-325 MG TABLET PO PRN ×2 (10:00→18:37)
[2019-02-22] MEDS: FAMOTIDINE 20 MG TABLET PO SCH ×2 (10:00→21:47)
[2019-02-22] MEDS: DOCUSATE SODIUM 100 MG CAPSULE PO SCH (18:32)
[2019-02-23] MEDS: POTASSI CL 20 MEQ/D5-1/2NS 1L 1,000 ML IV PRN (00:18)
[2019-02-23] MEDS: CEFAZOLIN SODIUM 1 GM in DEXTROSE 5%-WATER 50 ML IV SCH ×3 (02:13→17:06)
[2019-02-23] MEDS: METRONIDAZOLE 500 MG/NS RTU 500 MG/100 ML RTUPB IV SCH ×3 (03:01→14:09)
[2019-02-23 04:47] LABS: HEMATOCRIT 22.6 % (37.9-51.0); MEAN CORPUSCULAR HGB CONC 30.3 g/dL (32.0-36.0); PLATELET COUNT 208 10^3/uL (150-450); RED CELL DISTRIBUTION WIDTH 18.5 % (11.5-14.0); WHITE BLOOD COUNT 14.7 10^3/uL (4.0-10.5)
[2019-02-23 05:28] LABS: HEMOGLOBIN 6.9 g/dL (13.5-17.0)
[2019-02-23 05:43] LABS: MEAN CORPUSCULAR VOLUME 63 fl (80-97)
[2019-02-23] MEDS: HEPARIN SOD (PORCINE) 5,000 UNIT/ML 1 ML VIAL SUBCUT SCH ×3 (06:11→22:07)
[2019-02-23] MEDS: KETOROLAC TROMETHAMINE INJ/PF 30 MG/1 ML SDV IV SCH ×3 (06:12→22:09)
[2019-02-23 06:51] LABS: ANION GAP 7 (5-19); BLOOD UREA NITROGEN 39 mg/dL (7-20); CALCIUM 7.7 mg/dL (8.4-10.2); CARBON DIOXIDE 25 mmol/L (22-30); CHLORIDE 101 mmol/L (98-107); GLUCOSE 103 mg/dL (75-110); POTASSIUM 4.9 mmol/L (3.6-5.0)
[2019-02-23] MEDS ORDERED: INFLUENZA QUAD (6MOS+) 2019-20 VAC 0.5 ML SYR IM ONE (08:00)
[2019-02-23] MEDS: DOCUSATE SODIUM 100 MG CAPSULE PO SCH ×2 (10:01→17:03)
[2019-02-23] MEDS: FAMOTIDINE 20 MG TABLET PO SCH ×2 (10:01→22:10)
[2019-02-23 11:49] LABS: ANION GAP 9 (5-19); BLOOD UREA NITROGEN 35 mg/dL (7-20); CALCIUM 7.7 mg/dL (8.4-10.2); CARBON DIOXIDE 23 mmol/L (22-30); CHLORIDE 101 mmol/L (98-107); GLUCOSE 106 mg/dL (75-110)
[2019-02-23] MEDS ORDERED: ACETAMINOPHEN 325 MG TABLET PO PRN (12:16)
--- NOTE | 2019-02-23 12:28 | PDOC PROGRESS REPORT ---
Subjective Progress Note for:: 02/23/19 Subjective:: Comfortable, he reports mid abdominal pain, he has had a bowel movement with soft stools today, he has fair appetite Reason For Visit: ACUTE CHOLECYSTITIS Physical Exam Vital Signs: Temp Pulse Resp BP Pulse Ox 98.1 F 56 L 18 132/79 H 100 02/23/19 07:30 02/23/19 07:30 02/23/19 07:30 02/23/19 07:30 02/23/19 07:30 Intake & Output 02/22/19 02/23/19 02/24/19 06:59 06:59 06:59 Intake Total 4300 4127 150 Output Total 765 370 Balance 3535 3757 150 Weight 96.7 kg 98.6 kg General appearance: PRESENT: no acute distress Respiratory exam: PRESENT: clear to auscultation morenita Cardiovascular exam: PRESENT: RRR GI/Abdominal exam: PRESENT: normal bowel sounds, other - All wounds are clean, dry, and intact Drain in the right upper quadrant with a serosanguineous fluid, no bile identified Results Laboratory Results: 02/23/19 03:41 02/23/19 10:56 02/23/19 02/23/19 02/23/19 03:41 03:41 10:56 WBC 14.7 H RBC 3.60 L Hgb 6.9 L Hct 22.6 L MCV 63 L MCH 19.0 L MCHC 30.3 L RDW 18.5 H Plt Count 208 Sodium 133.1 L 132.6 L Potassium 4.9 4.0 Chloride 101 101 Carbon Dioxide 25 23 Anion Gap 7 9 BUN 39 H 35 H Creatinine 1.12 0.99 Est GFR ( Amer) > 60 > 60 Glucose 103 106 Calcium 7.7 L 7.7 L Impressions: Abdomen Ultrasound 02/20/19 19:30 IMPRESSION: Distended gallbladder, cholelithiasis, gallbladder wall thickening, mild pericholecystic free fluid, and positive sonographic Mejía's sign. Overall, these findings are compatible with acute cholecystitis. copyright 2010 [employer]- All Rights Reserved Assessment & Plan - Diagnosis (1) Acute calculous cholecystitis Is this a current diagnosis for this admission?: Yes (2) Abdominal pain Is this a current diagnosis for this admission?: Yes - Plan Summary Plan Summary: Assessment: Postop day #2 following laparoscopic partial cholecystectomy for acute cholecystitis and cholelithiasis Vital signs stable patient afebrile Right blood cell count down to 14,000 today H&H 6.9/22.6, most likely combination of blood loss during surgery and postoperative hemodilution Physical exam unremarkable Right upper quadrant abdominal drain filled with serosanguineous fluid Plan: Repeat CBC today At this point, no need of transfusion patient with blood because of his stable vital signs and the lack of symptoms Continue IV antibiotics (Ancef and Flagyl) Patient to be discharged home once his white blood cell count approaches normal value Stop oral and IV narcotics
[2019-02-23 12:39] LABS: HEMATOCRIT 23.6 % (37.9-51.0); MEAN CORPUSCULAR HEMOGLOBIN 19.3 pg (27.0-33.4); MEAN CORPUSCULAR VOLUME 62 fl (80-97); PLATELET COUNT 237 10^3/uL (150-450); RED BLOOD COUNT 3.79 10^6/uL (4.35-5.55); RED CELL DISTRIBUTION WIDTH 18.7 % (11.5-14.0); WHITE BLOOD COUNT 13.8 10^3/uL (4.0-10.5)
[2019-02-23 12:59] LABS: ABSOLUTE LYMPHOCYTES# (MANUAL) 0.1 10^3/uL (0.5-4.7); ABSOLUTE MONOCYTES # (MANUAL) 0.4 10^3/uL (0.1-1.4); BAND NEUTROPHILS % (MANUAL) 1 % (3-5); BASOPHILS % (MANUAL) 0 % (0-2); EOSINOPHILS % (MANUAL) 0 % (0-6); LYMPHOCYTES % (MANUAL) 1 % (13-45); MONOCYTES % (MANUAL) 3 % (3-13); SEGMENTED NEUTROPHILS % (MAN) 95 % (42-78); TOTAL CELLS COUNTED 100
[2019-02-23 13:03] LABS: ANISOCYTOSIS 1+; BURR CELLS SLIGHT; HYPOCHROMASIA 1+; OVALOCYTES 1+; PLATELET COMMENT ADEQUATE; POIKILOCYTOSIS 1+; SCHISTOCYTES SLIGHT; TEAR DROP CELLS SLIGHT
[2019-02-23 13:10] LABS: HEMOGLOBIN 7.3 g/dL (13.5-17.0)
[2019-02-23 14:06] LABS: PATH REVIEW PATHOLOGIST REVIEWED
[2019-02-23] MEDS: METRONIDAZOLE 500 MG TABLET PO SCH (22:09)
[2019-02-24] MEDS: CEFAZOLIN SODIUM 1 GM in DEXTROSE 5%-WATER 50 ML IV SCH ×2 (02:30→10:24)
[2019-02-24] MEDS: METRONIDAZOLE 500 MG TABLET PO SCH ×2 (02:30→08:16)
[2019-02-24 05:40] LABS: HEMATOCRIT 22.5 % (37.9-51.0); MEAN CORPUSCULAR HEMOGLOBIN 19.4 pg (27.0-33.4); MEAN CORPUSCULAR HGB CONC 31.3 g/dL (32.0-36.0); MEAN CORPUSCULAR VOLUME 62 fl (80-97); PLATELET COUNT 236 10^3/uL (150-450); RED BLOOD COUNT 3.63 10^6/uL (4.35-5.55); RED CELL DISTRIBUTION WIDTH 18.4 % (11.5-14.0); WHITE BLOOD COUNT 9.3 10^3/uL (4.0-10.5)
[2019-02-24] MEDS: HEPARIN SOD (PORCINE) 5,000 UNIT/ML 1 ML VIAL SUBCUT SCH (05:44)
[2019-02-24] MEDS: KETOROLAC TROMETHAMINE INJ/PF 30 MG/1 ML SDV IV SCH (05:49)
[2019-02-24 06:06] LABS: ALBUMIN 2.6 g/dL (3.5-5.0); ALKALINE PHOSPHATASE 57 U/L (38-126); ANION GAP 6 (5-19); ASPARTATE AMINO TRANSFERASE 35 U/L (17-59); BILIRUBIN,DIRECT 0.2 mg/dL (0.0-0.4); BILIRUBIN,TOTAL 0.5 mg/dL (0.2-1.3); BLOOD UREA NITROGEN 24 mg/dL (7-20); CALCIUM 7.8 mg/dL (8.4-10.2); CARBON DIOXIDE 25 mmol/L (22-30); CHLORIDE 105 mmol/L (98-107); GLUCOSE 88 mg/dL (75-110); POTASSIUM 4.7 mmol/L (3.6-5.0)
[2019-02-24 07:15] LABS: ABSOLUTE LYMPHOCYTES# (MANUAL) 0.7 10^3/uL (0.5-4.7); ABSOLUTE MONOCYTES # (MANUAL) 0.4 10^3/uL (0.1-1.4); ANISOCYTOSIS 1+; BAND NEUTROPHILS % (MANUAL) 1 % (3-5); BASOPHILS % (MANUAL) 0 % (0-2); EOSINOPHILS % (MANUAL) 1 % (0-6); HYPOCHROMASIA 2+; LYMPHOCYTES % (MANUAL) 7 % (13-45); MONOCYTES % (MANUAL) 4 % (3-13); PLATELET COMMENT ADEQUATE; SEGMENTED NEUTROPHILS % (MAN) 87 % (42-78); TOTAL CELLS COUNTED 100
--- NOTE | 2019-02-24 08:53 | PDOC PROGRESS REPORT ---
Subjective Progress Note for:: 02/24/19 Subjective:: No complaints. Reason For Visit: ACUTE CHOLECYSTITIS Physical Exam Vital Signs: Temp Pulse Resp BP Pulse Ox 98.3 F 69 16 121/74 100 02/24/19 07:20 02/24/19 07:20 02/24/19 07:20 02/24/19 07:20 02/24/19 07:20 Intake & Output 02/23/19 02/24/19 02/25/19 06:59 06:59 06:59 Intake Total 4127 650 Output Total 370 170 Balance 3757 480 Weight 98.6 kg 98 kg General appearance: PRESENT: no acute distress, cooperative Respiratory exam: PRESENT: clear to auscultation morenita Cardiovascular exam: PRESENT: RRR GI/Abdominal exam: PRESENT: other - Soft, nondistended, minimal tenderness. Drain output is serosanguineous. Results Laboratory Results: 02/24/19 04:44 02/24/19 04:44 02/23/19 02/23/19 02/24/19 10:56 12:27 04:44 WBC 13.8 H 9.3 RBC 3.79 L 3.63 L Hgb 7.3 L 7.0 L Hct 23.6 L 22.5 L MCV 62 L 62 L MCH 19.3 L 19.4 L MCHC 31.0 L 31.3 L RDW 18.7 H 18.4 H Plt Count 237 236 Seg Neutrophils % Not Reportable Not Reportable Sodium 132.6 L Potassium 4.0 Chloride 101 Carbon Dioxide 23 Anion Gap 9 BUN 35 H Creatinine 0.99 Est GFR ( Amer) > 60 Glucose 106 Calcium 7.7 L Total Bilirubin AST Alkaline Phosphatase Total Protein Albumin 02/24/19 04:44 WBC RBC Hgb Hct MCV MCH MCHC RDW Plt Count Seg Neutrophils % Sodium 136.3 L Potassium 4.7 Chloride 105 Carbon Dioxide 25 Anion Gap 6 BUN 24 H Creatinine 0.91 Est GFR ( Amer) > 60 Glucose 88 Calcium 7.8 L Total Bilirubin 0.5 AST 35 Alkaline Phosphatase 57 Total Protein 5.0 L Albumin 2.6 L Impressions: Abdomen Ultrasound 02/20/19 19:30 IMPRESSION: Distended gallbladder, cholelithiasis, gallbladder wall thickening, mild pericholecystic free fluid, and positive sonographic Mejía's sign. Overall, these findings are compatible with acute cholecystitis. copyright 2010 [employer]- All Rights Reserved Assessment & Plan - Diagnosis (1) Acute calculous cholecystitis Is this a current diagnosis for this admission?: Yes Plan: Status post subtotal cholecystectomy. Patient doing well. Hematocrit is stable. White blood cell count is back to normal. Drain output is serosanguineous. Will plan to discharge patient home today with the drain in place. Follow-up with Dr. Gallagher next week.
--- NOTE | 2019-02-24 09:04 | PDOC DISCHARGE SUMMARY ---
General - Admit/Disc Date/PCP Admission Date/Primary Care Provider: 02/20/19 23:03 Discharge Date: 02/24/19 - Discharge Diagnosis Final Diagnosis: Acute cholecystitis - Assessment Summary: Underwent fenestrated subtotal laparoscopic cholecystectomy on February 21, 2019. Did well postoperatively. Was noted with decreased hematocrit to 22% which remained stable on subsequent laboratory values with no bleeding via his drain. Patient was feeling well at the time of discharge, tolerating a diet with good pain control. Drain output was serosanguineous. Patient is to call for any problems or concerns. Such as fever or malaise or increased pain or bilious drainage out of his drain. He is to stay active but avoid strenuous activity. He may shower. Drain care instructions were given to the patient. He is to follow-up with Dr. Gallagher next week. - Additional Information Resuscitation Status: Full Code Discharge Diet: As Tolerated Discharge Activity: Activity As Tolerated - Stay active but avoid strenuous activity. May shower. Keep track of drain output and quality of the drain output., No Driving Prescriptions: Docusate Sodium [Colace 100 mg Capsule] 100 mg PO BID #30 capsule Ferrous Sulfate 325 mg PO BID #60 tablet. Oxycodone HCl/Acetaminophen [Percocet 5-325 mg Tablet] 1 tab PO ASDIR PRN #15 tablet PRN Reason: Home Medications: Docusate Sodium [Colace 100 mg Capsule] 100 mg PO BID #30 capsule 02/24/19 Ferrous Sulfate 325 mg PO BID #60 tablet. 02/24/19 Oxycodone HCl/Acetaminophen [Percocet 5-325 mg Tablet] 1 tab PO ASDIR PRN #15 tablet 02/24/19 History of Present Illiness History of Present Illness: JOSÉ MIGUEL CONNELL is a 48 year old male Physical Exam Vital Signs: Temp Pulse Resp BP Pulse Ox 98.3 F 69 16 121/74 100 02/24/19 07:20 02/24/19 07:20 02/24/19 07:20 02/24/19 07:20 02/24/19 07:20 Intake & Output 02/23/19 02/24/19 02/25/19 06:59 06:59 06:59 Intake Total 4127 650 Output Total 370 170 Balance 3757 480 Weight 98.6 kg 98 kg Results Laboratory Results: WBC 9.3 10^3/uL (4.0-10.5) 02/24/19 04:44 RBC 3.63 10^6/uL (4.35-5.55) L 02/24/19 04:44 Hgb 7.0 g/dL (13.5-17.0) L 02/24/19 04:44 Hct 22.5 % (37.9-51.0) L 02/24/19 04:44 MCV 62 fl (80-97) L 02/24/19 04:44 MCH 19.4 pg (27.0-33.4) L 02/24/19 04:44 MCHC 31.3 g/dL (32.0-36.0) L 02/24/19 04:44 RDW 18.4 % (11.5-14.0) H 02/24/19 04:44 Plt Count 236 10^3/uL (150-450) 02/24/19 04:44 Lymph % (Auto) Not Reportable 02/24/19 04:44 [place] % (Auto) Not Reportable 02/24/19 04:44 Eos % (Auto) Not Reportable 02/24/19 04:44 Baso % (Auto) Not Reportable 02/24/19 04:44 Absolute Neuts (auto) Not Reportable 02/24/19 04:44 Absolute Lymphs (auto) Not Reportable 02/24/19 04:44 Absolute Monos (auto) Not Reportable 02/24/19 04:44 Absolute Eos (auto) Not Reportable 02/24/19 04:44 Absolute Basos (auto) Not Reportable 02/24/19 04:44 Total Counted 100 02/24/19 04:44 Seg Neutrophils % Not Reportable 02/24/19 04:44 Seg Neuts % (Manual) 87 % (42-78) H 02/24/19 04:44 Band Neutrophils % 1 % (3-5) L 02/24/19 04:44 Lymphocytes % (Manual) 7 % (13-45) L 02/24/19 04:44 Monocytes % (Manual) 4 % (3-13) 02/24/19 04:44 Eosinophils % (Manual) 1 % (0-6) 02/24/19 04:44 Basophils % (Manual) 0 % (0-2) 02/24/19 04:44 Abs Neuts (Manual) 8.2 10^3/uL (1.7-8.2) 02/24/19 04:44 Abs Lymphs (Manual) 0.7 10^3/uL (0.5-4.7) 02/24/19 04:44 Abs Monocytes (Manual) 0.4 10^3/uL (0.1-1.4) 02/24/19 04:44 Absolute Eos (Manual) 0.1 10^3/uL (0.0-0.6) 02/24/19 04:44 Abs Basophils (Manual) 0.0 10^3/uL (0.0-0.2) 02/24/19 04:44 Large Platelets PRESENT 02/22/19 03:59 Platelet Comment ADEQUATE 02/24/19 04:44 Hypochromasia 2+ 02/24/19 04:44 Poikilocytosis 1+ 02/23/19 12:27 Anisocytosis 1+ 02/24/19 04:44 Microcytosis 3+ 02/24/19 04:44 Tear Drop Cells SLIGHT 02/23/19 12:27 Ovalocytes 1+ 02/23/19 12:27 Andrew Cells SLIGHT 02/23/19 12:27 Schistocytes SLIGHT 02/23/19 12:27 Sodium 136.3 mmol/L (137-145) L 02/24/19 04:44 Potassium 4.7 mmol/L (3.6-5.0) 02/24/19 04:44 Chloride 105 mmol/L (98-107) 02/24/19 04:44 Carbon Dioxide 25 mmol/L (22-30) 02/24/19 04:44 Anion Gap 6 (5-19) 02/24/19 04:44 BUN 24 mg/dL (7-20) H 02/24/19 04:44 Creatinine 0.91 mg/dL (0.52-1.25) 02/24/19 04:44 Est GFR ( Amer) > 60 (>60) 02/24/19 04:44 Est GFR (MDRD) Non-Af > 60 (>60) 02/24/19 04:44 Glucose 88 mg/dL (75-110) 02/24/19 04:44 POC Glucose 142 mg/dL (70-110) H 02/21/19 06:34 Calcium 7.8 mg/dL (8.4-10.2) L 02/24/19 04:44 Total Bilirubin 0.5 mg/dL (0.2-1.3) 02/24/19 04:44 Direct Bilirubin 0.2 mg/dL (0.0-0.4) 02/24/19 04:44 Neonat Total Bilirubin Not Reportable 02/24/19 04:44 Neonat Direct Bilirubin Not Reportable 02/24/19 04:44 Neonat Indirect Bili Not Reportable 02/24/19 04:44 AST 35 U/L (17-59) 02/24/19 04:44 ALT 43 U/L (<50) 02/24/19 04:44 Alkaline Phosphatase 57 U/L (38-126) 02/24/19 04:44 Total Protein 5.0 g/dL (6.3-8.2) L 02/24/19 04:44 Albumin 2.6 g/dL (3.5-5.0) L 02/24/19 04:44 Lipase 25.3 U/L (23-300) 02/20/19 19:25 Urine Color DARK YELLOW 02/20/19 19:45 Urine Appearance SLIGHTLY-CLOUDY 02/20/19 19:45 Urine pH 7.0 (5.0-9.0) 02/20/19 19:45 Ur Specific [place] 1.027 02/20/19 19:45 Urine Protein 100 mg/dL (NEGATIVE) H 02/20/19 19:45 Urine Glucose (UA) NEGATIVE mg/dL (NEGATIVE) 02/20/19 19:45 Urine Ketones TRACE mg/dL (NEGATIVE) H 02/20/19 19:45 Urine Blood NEGATIVE (NEGATIVE) 02/20/19 19:45 Urine Nitrite NEGATIVE (NEGATIVE) 02/20/19 19:45 Urine Bilirubin NEGATIVE (NEGATIVE) 02/20/19 19:45 Urine Urobilinogen NEGATIVE mg/dL (<2.0) 02/20/19 19:45 Ur Leukocyte Esterase NEGATIVE (NEGATIVE) 02/20/19 19:45 Urine WBC (Auto) 3 /HPF 02/20/19 19:45 Urine RBC (Auto) 2 /HPF 02/20/19 19:45 Urine Mucus (Auto) MOD /LPF 02/20/19 19:45 Urine Ascorbic Acid NEGATIVE (NEGATIVE) 02/20/19 19:45 Slides for Path Review PATHOLOGIST REVIEWED 02/23/19 03:41 Impressions: Abdomen Ultrasound 02/20/19 19:30 IMPRESSION: Distended gallbladder, cholelithiasis, gallbladder wall thickening, mild pericholecystic free fluid, and positive sonographic Mejía's sign. Overall, these findings are compatible with acute cholecystitis. copyright 2010 [employer]- All Rights Reserved
[2019-02-24] MEDS: FAMOTIDINE 20 MG TABLET PO SCH (10:24)
[2019-02-24] MEDS: DOCUSATE SODIUM 100 MG CAPSULE PO SCH (10:24)
[2019-02-24 10:37] VITALS: BP 132/76
== END 2019-02-24 11:38 | disposition home or self-care (01) | DRG 418 ==
LOC: ER 18:02 → EH 23:03 → UNDOADMIN 23:03 → EH 02-21 01:28 → 3N 02-21 01:28 → UNDODISIN 02-24 11:38
PROVIDERS: ADMIT Surgery; ATTEND Surgery
PROC: 0FT44ZZ Resection of Gallbladder, Percutaneous Endoscopic Approach (ICD-10-PCS; principal; 2019-02-21 13:00)
PROC: 3E0234Z Introduction of Serum, Toxoid and Vaccine into Muscle, Percutaneous Approach (ICD-10-PCS; 2019-02-24)
DX: K80.00 Calculus of gallbladder with acute cholecystitis without obstruction (principal); K82.A2 Perforation of gallbladder in cholecystitis; K82.A1 Gangrene of gallbladder in cholecystitis; Z98.84 Bariatric surgery status; Z23 Encounter for immunization
CPT/HCPCS: 36415; 76705; 790; 80048; 80053; 80076; 81001; 82962; 83690; 85025; 85027; 88304; 90686; 94799; 96374; 96375; 99284; J0690; J1100; J1170; J1610; J1644; J1885; J2250; J2270; J2370; J2405; J2543; J2704; J2710; J3010; J3480; J3490; J7030; J7060

== ENCOUNTER 2019-03-05 21:51 | Inpatient (IN) | payer MEDICAID ==
[2019-03-05 22:35] LABS: VENOUS BLOOD PCO2 34.9 mmHg (35-63); VENOUS BLOOD PH 7.44 (7.30-7.42)
[2019-03-05 22:40] LABS: ABSOLUTE BASOPHILS # (AUTO) 0.1 10^3/uL (0.0-0.2); ABSOLUTE LYMPHOCYTES (AUTO) 1.7 10^3/uL (0.5-4.7); ABSOLUTE MONOCYTES (AUTO) 1.7 10^3/uL (0.1-1.4); ABSOLUTE NEUT (AUTO) 9.2 10^3/uL (1.7-8.2); BASOPHILS % (AUTO) 0.4 % (0-2); EOSINOPHILS % (AUTO) 0.4 % (0-6); HEMATOCRIT 22.8 % (37.9-51.0); LYMPHOCYTES % (AUTO) 13.1 % (13-45); MEAN CORPUSCULAR HEMOGLOBIN 19.1 pg (27.0-33.4); MEAN CORPUSCULAR HGB CONC 30.1 g/dL (32.0-36.0); MEAN CORPUSCULAR VOLUME 63 fl (80-97); MONOCYTES % (AUTO) 13.3 % (3-13); PLATELET COUNT 654 10^3/uL (150-450); RED CELL DISTRIBUTION WIDTH 18.3 % (11.5-14.0); SEGMENTED NEUTROPHILS % (AUTO) 72.8 % (42-78); TOTAL CELLS COUNTED % (AUTO) 100 %; WHITE BLOOD COUNT 12.7 10^3/uL (4.0-10.5)
[2019-03-05] MEDS ORDERED: NORMAL SALINE 1000 ML 1,000 ML IV PRN (22:41)
[2019-03-05 22:45] LABS: HEMOGLOBIN 6.9 g/dL (13.5-17.0)
[2019-03-05] MEDS ORDERED: NORMAL SALINE 250 ML IV PRN (22:47)
[2019-03-05 22:48] LABS: INTERNATIONAL RATION (INR) 1.14; PROTHROMBIN TIME 14.7 SEC (11.4-15.4)
--- NOTE | 2019-03-05 22:52 | ER Document Report ---
ED General - General Chief Complaint: Fever Stated Complaint: POST OP COMPLICATION Time Seen by Provider: 03/05/19 22:20 TRAVEL OUTSIDE OF THE [place] IN LAST 30 DAYS: No - HPI Notes: Patient is a 48-year-old male who presents to the emergency department for evaluation. He had a rather complicated hospital course, when he was found to have a severely infected, gangrenous, partially ruptured gallbladder. He was cared for by Dr. Gallagher. He had a drain in place, this was removed while inpatient, and he was sent home. Original surgery was on February 21. Since being home he has had a normal postop course. His pain has been improving. Is been controlled with Tylenol. Yesterday he noted feeling chilled, could not get warm. His temperature was over 102. He seemed to feel improved, believed his fever broke in the middle the night. Today when going back to bed, his fever was noted to be elevated again. He denies any headache. Mild sore throat and postnasal drainage. He denies cough, but his says he has been coughing minimally. No nausea or vomiting. Bowel movements have been variable, given both his iron and stool softeners. He states he had one episode of increased epigastric abdominal pain yesterday, but it was transient. No urinary symptoms. No cuts or rashes. - Related Data Allergies/Adverse Reactions: No Known Allergies Allergy (Verified 02/20/19 18:40) Past Medical History - General Information source: Patient - Social History Smoking Status: Never Smoker Frequency of alcohol use: None Drug Abuse: None Family History: None Patient has suicidal ideation: No Patient has homicidal ideation: No Renal/ Medical History: Denies: Hx Peritoneal Dialysis Past Surgical History: Reports: Hx Cholecystectomy, Hx Gastric Bypass Surgery - Nas-en-Y Review of Systems - Review of Systems Constitutional: See HPI EENT: No symptoms reported Cardiovascular: No symptoms reported Respiratory: See HPI Gastrointestinal: See HPI Genitourinary: No symptoms reported Musculoskeletal: No symptoms reported Skin: No symptoms reported Neurological/Psychological: No symptoms reported Physical Exam - Vital signs Vitals: Temp Pulse Resp BP Pulse Ox 100 F 105 H 18 146/72 H 99 03/05/19 22:01 03/05/19 22:01 03/05/19 22:01 03/05/19 22:01 03/05/19 22:01 - Notes Notes: Vital signs reviewed, please refer to chart. Head is normocephalic, atraumatic. Pupils equal round, reactive to light. Neck is supple without meningismus. Heart is regular rate and rhythm. Lungs are clear to auscultation bilaterally. Abdomen is soft, laparoscopic surgical scars, as well as scar from drain, well approximated and healing. He has moderate right upper quadrant and epigastric tenderness with some voluntary guarding, no rebound. He has generalized abdominal tenderness throughout the remainder of his abdominal exam. Normoactive bowel sounds throughout. Extremities without cyanosis, clubbing. Posterior calves are nontender. Peripheral pulses are equal. Skin is warm and dry. Patient is awake, alert, neurological exam is nonfocal. Course - Re-evaluation Re-evalutation: 03/06/19 01:31 Patient is a 48-year-old gentleman, status post complicated partial cholecystectomy, who presents emergency department for evaluation of a fever. Fever started yesterday. He really does not have any significant focal symptoms, only finding on exam is abdominal tenderness. As a result, CT scan of the abdomen pelvis with IV contrast was ordered. Seroma versus biloma was identified. I did speak with Dr. Gallagher. He agrees that IV antibiotics and admission are warranted at this time. Will admit the patient to the surgical floor. - Vital Signs Vital signs: Temp Pulse Resp BP Pulse Ox 98.4 F 105 H 21 H 116/70 99 03/05/19 22:56 03/05/19 22:01 03/06/19 00:31 03/06/19 00:31 03/06/19 00:31 - Laboratory Result Diagrams: 03/05/19 22:20 03/05/19 22:20 Laboratory results interpreted by me: 03/05/19 03/05/19 03/05/19 22:20 22:20 22:20 WBC 12.7 H RBC 3.60 L Hgb 6.9 L Hct 22.8 L MCV 63 L MCH 19.1 L MCHC 30.1 L RDW 18.3 H Plt Count 654 H [place] % (Auto) 13.3 H Absolute Neuts (auto) 9.2 H Absolute Monos (auto) 1.7 H VBG pH 7.44 H VBG pCO2 34.9 L Sodium 136.6 L Potassium 3.5 L Albumin 3.4 L Crossmatch 03/05/19 23:07 WBC RBC Hgb Hct MCV MCH MCHC RDW Plt Count [place] % (Auto) Absolute Neuts (auto) Absolute Monos (auto) VBG pH VBG pCO2 Sodium Potassium Albumin Crossmatch See Detail - Diagnostic Test Radiology reviewed: Image reviewed, Reports reviewed Radiology results interpreted by me: 03/06/19 01:31 Chest X-Ray 03/05/19 23:31 IMPRESSION: No acute cardiopulmonary abnormality. copyright 2010 [employer]- All Rights Reserved Abdomen/Pelvis CT 03/05/19 23:48 IMPRESSION: Post recent cholecystectomy with 8 x 2 x 3 cm fluid collection at the gallbladder fossa may indicate a seroma or biloma. Discharge - Discharge Clinical Impression: SIRS (systemic inflammatory response syndrome) Anemia Qualifiers: Anemia type: unspecified type Qualified Code(s): D64.9 - Anemia, unspecified Biloma following surgery Qualifiers: Encounter type: initial encounter Qualified Code(s): T81.89XA - Other complications of procedures, not elsewhere classified, initial encounter; K66.8 - Other specified disorders of peritoneum Condition: Stable Disposition: ADMITTED INPATIENT Admitting Provider: Surgicalist - Dr. Gallagher Unit Admitted: Surgical Floor
[2019-03-05 22:59] LABS: ALBUMIN 3.4 g/dL (3.5-5.0); ALKALINE PHOSPHATASE 110 U/L (38-126); ANION GAP 14 (5-19); ASPARTATE AMINO TRANSFERASE 29 U/L (17-59); BILIRUBIN,DIRECT 0.2 mg/dL (0.0-0.4); BILIRUBIN,TOTAL 0.3 mg/dL (0.2-1.3); BLOOD UREA NITROGEN 15 mg/dL (7-20); CALCIUM 8.5 mg/dL (8.4-10.2); CARBON DIOXIDE 24 mmol/L (22-30); CHLORIDE 99 mmol/L (98-107); GLUCOSE 97 mg/dL (75-110); POTASSIUM 3.5 mmol/L (3.6-5.0); TOTAL PROTEIN 6.6 g/dL (6.3-8.2)
[2019-03-05 23:07] LABS: ANISOCYTOSIS 2+; HYPOCHROMASIA 2+
[2019-03-05 23:09] LABS: PLATELET COMMENT INCREASED
--- NOTE | 2019-03-06 00:17 | RADIOLOGY REPORT (SQ) ---
EXAM DESCRIPTION: XR CHEST 2 VIEWS COMPLETED DATE/TME: 03/05/2019 23:31 CLINICAL HISTORY: 48 years, Male, fever COMPARISON: None. NUMBER OF VIEWS: Two TECHNIQUE: Two views of the chest LIMITATIONS: None. FINDINGS: The lungs are clear. The heart is normal in size. No pneumothorax or pleural effusion. No acute fracture. IMPRESSION: No acute cardiopulmonary abnormality. copyright 2010 [employer]- All Rights Reserved
[2019-03-06 00:22] LABS: APPEARANCE,URINE CLEAR; BILIRUBIN,URINE NEGATIVE (NEGATIVE); COLOR,URINE STRAW; GLUCOSE, URINE NEGATIVE (NEGATIVE); KETONES,URINE NEGATIVE (NEGATIVE); LEUKOCYTE ESTERASE,URINE NEGATIVE (NEGATIVE); NITRITE,URINE NEGATIVE (NEGATIVE); PROTEIN,URINE NEGATIVE (NEGATIVE); URINE SPECIFIC GRAVITY 1.004; UROBILINOGEN,URINE NEGATIVE mg/dL (<2.0)
--- NOTE | 2019-03-06 01:10 | RADIOLOGY REPORT (SQ) ---
EXAM DESCRIPTION: CT ABDOMEN PELVIS WITH IV CONTRAST COMPLETED DATE/TME: 03/05/2019 23:48 CLINICAL HISTORY: 48 years Male, abdominal pain, fever, s/p cholecystectomy 02/21/19. CREAT 0.89 Comparison: 02/19/19 Technique: IV contrast. Coronal and sagittal reformat. This exam was performed according to our departmental dose-optimization program, which includes automated exposure control, adjustment of the mA and/or kV according to patient size and/or use of iterative reconstruction technique. [facility]: Dose Right [facility]: CareDose [facility]: Dose Right [facility]: Teradose 4D [facility]: [employer] LIMITATIONS: None Findings: Reported postcholecystectomy with 8 x 2 x 3 cm fluid collection at the gallbladder fossa may indicate a biloma, seroma. Moderate fat inflammation inferior to the gallbladder fossa. No biliary ductal dilation. Small soft tissue gas at the right lateral abdominal wall, iatrogenic. Moderate L5-S1 disc bulge/osteophyte complex with 0.3 cm degenerative L5 retrolisthesis with mild spinal-foraminal stenoses. Atelectasis/scar. Gastric suture. Bowel suture at the left abdomen. Appendicolith(s) and/or retained contrast. No evidence of appendicitis. No ascites. No pneumoperitoneum. No bowel obstruction. No hydronephrosis or hydroureter. No renal/ureteral stone. No evidence of abdominal aortic aneurysm. Inferior thorax, liver, pancreas, spleen, adrenals, renal system, gastrointestinal tract, pelvic organs, lymphatics, vasculature, and musculoskeleton appear otherwise unremarkable. IMPRESSION: Post recent cholecystectomy with 8 x 2 x 3 cm fluid collection at the gallbladder fossa may indicate a seroma or biloma.
[2019-03-06] MEDS ORDERED: ONDANSETRON HCL INJ/PF 4 MG/2 ML SDV IV PRN (01:29)
[2019-03-06] MEDS ORDERED: MORPHINE SULFATE 10 MG/ML INJ IV PRN (01:29)
[2019-03-06] MEDS ORDERED: PIPERACILLIN/TAZOBACTAM 3.375 GM VIAL IV ONE ×2 (01:29→06:07)
[2019-03-06] MEDS ORDERED: NEOSTIGMINE METHYLSULFATE 10 MG/10 ML VIAL ONE (05:00)
[2019-03-06] MEDS ORDERED: GLYCOPYRROLATE 1 MG/5 ML VIAL ONE (05:00)
[2019-03-06] MEDS ORDERED: DEXAMETHASONE SOD PHOSPHATE INJ 4 MG/1 ML VIAL ONE (05:00)
[2019-03-06] MEDS ORDERED: ROCURONIUM BROMIDE INJ 50 MG/5 ML VIAL IV ONE (05:00)
[2019-03-06] MEDS ORDERED: SUCCINYLCHOLINE CHLORIDE INJ 200 MG/10 ML VIAL ONE (05:00)
--- NOTE | 2019-03-06 05:27 | RADIOLOGY REPORT (SQ) ---
EXAM DESCRIPTION: NM HEPATOBILIARY WITHOUT PHARM COMPLETED DATE/TME: 03/06/2019 00:00 CLINICAL HISTORY: 48 years Male, s/p isabelle. eval for bile leak COMPARISON: None. RADIONUCLIDE AND DOSE: 5.0-mCi of Tc99m mebrofenin IV. Two minute per frame imaging for a period of 60 minutes from an anterior approach. 60 minute right lateral static view. LIMITATIONS: None. Findings Hepatic transit time: Normal. Excretion into small bowel: Normal. Gallbladder: Absent. Ejection fraction: 0% Other findings: Moderate pooled accumulation of radiopharmaceutical at the gallbladder fossa consistent with 8 cm collection on concurrent CT and suggestive of a biloma. Impression Moderate pooled accumulation of radiopharmaceutical at the gallbladder fossa consistent with 8 [address] collection [address] and suggestive of a biloma.
[2019-03-06] MEDS: OXYCODONE-ACETAMINOPHEN 5-325 MG TABLET PO PRN (07:31)
[2019-03-06] MEDS: KETOROLAC TROMETHAMINE INJ/PF 30 MG/1 ML SDV IV PRN ×2 (07:32→17:29)
[2019-03-06] MEDS: PIPERACILLIN SODIUM/TAZOBACTAM 3.375 GM in NORMAL SALINE 100 ML IV SCH ×3 (09:24→21:24)
[2019-03-06] MEDS: ENOXAPARIN SODIUM INJ 40 MG/0.4 ML DISP.SYRIN SUBCUT SCH (10:57)
[2019-03-06] MEDS ORDERED: FENTANYL CITRATE INJ/PF 250 MCG/5 ML AMPULE ONE (12:21)
[2019-03-06] MEDS ORDERED: PROPOFOL INJ 200 MG/20 ML VIAL IV ONE (12:21)
[2019-03-06] MEDS ORDERED: HYDROMORPHONE HCL INJ/PF 2 MG/ML AMPULE ONE ×2 (12:21→18:30)
[2019-03-06] MEDS ORDERED: MIDAZOLAM 2 MG/2 ML INJ ONE (12:21)
--- NOTE | 2019-03-06 12:29 | PDOC H&P ---
History of Present Illness Admission Date/PCP: 03/06/19 01:51 Patient complains of: right upper quadrant pain and fever History of Present Illness: JOSÉ MIGUEL CONNELL is a 48 year old male who is approximately 2 weeks status post laparoscopic, fenestrated subtotal cholecystectomy. The patient was doing very well. His right upper quadrant drain was draining minimal amounts of fluid. It was clear in color, and nonbilious. The drain was removed in the office on . The patient did well and Thursday. Thursday evening the patient began running fevers as high as 102 F. At that time, the patient also began experiencing increasing amounts of right upper quadrant pain. His pain is 8 out of 10 at worst. It does not radiate. Nothing makes it better. Palpation and movement make it worse. He presented to the emergency department for evaluation. A CT scan was performed, showing a fluid collection in the gallbladder fossa. a HIDA scan was also ordered, demonstrating flow of radiotracer into the gallbladder fossa. This confirmed a bile leak. The patient reports right upper quadrant pain, nausea, fevers, chills. He denies chest pain, shortness of breath, headache, dizziness, orthostasis, vomiting, melena, hematochezia, hematemesis, paresthesias, weakness. Past Surgical History Past Surgical History: Reports: Cholecystectomy, Gastric Bypass Surgery - Nas-en-Y Social History Smoking Status: Never Smoker Electronic Cigarette use?: No Frequency of Alcohol Use: None Hx Recreational Drug Use: No Drugs: None Hx Prescription Drug Abuse: No - Advance Directive Resuscitation Status: Full Code Family History Family History: None Parental Family History Reviewed: Yes Children Family History Reviewed: Yes Sibling(s) Family History Reviewed.: Yes Medication/Allergy Home Medications: Docusate Sodium [Colace 100 mg Capsule] 100 mg PO BID 03/06/19 Ferrous Sulfate [Feosol 325 mg Tablet] 325 mg PO BID 03/06/19 Oxycodone HCl/Acetaminophen [Percocet 5-325 mg Tablet] 1 tab PO Q4HP PRN 03/06/19 Simethicone [Gas Relief 80] 80 mg PO DAILYP PRN 03/06/19 Allergies/Adverse Reactions: morphine Adverse Reaction (Verified 03/06/19 02:34) Review of Systems Constitutional: PRESENT: anorexia, chills, fever(s). ABSENT: headache(s), weakness Eyes: ABSENT: visual disturbances Ears: ABSENT: hearing changes Nose, Mouth, and Throat: ABSENT: mouth pain, sore throat Cardiovascular: ABSENT: chest pain Respiratory: ABSENT: cough, dyspnea Gastrointestinal: PRESENT: abdominal pain, bloating, nausea. ABSENT: hemate mesis, hematochezia, melena, vomiting Genitourinary: ABSENT: dysuria Musculoskeletal: ABSENT: back pain Integumentary: ABSENT: pruritus, rash Neurological: ABSENT: confusion, convulsions, dizziness, weakness Psychiatric: ABSENT: anxiety, depression Endocrine: ABSENT: cold intolerance, heat intolerance Hematologic/Lymphatic: ABSENT: easy bleeding, easy bruising Physical Exam Vital Signs: Temp Pulse Resp BP Pulse Ox 98.0 F 75 17 132/71 H 99 03/06/19 11:27 03/06/19 11:27 03/06/19 11:27 03/06/19 11:27 03/06/19 11:27 Intake & Output 03/05/19 03/06/19 03/07/19 06:59 06:59 06:59 Intake Total 1350 Balance 1350 Weight 89 kg General appearance: PRESENT: no acute distress Head exam: PRESENT: atraumatic, normocephalic Eye exam: PRESENT: EOMI, PERRLA. ABSENT: scleral icterus Mouth exam: PRESENT: moist, neck supple Neck exam: ABSENT: meningismus, tenderness, thyromegaly, tracheal deviation Respiratory exam: PRESENT: clear to auscultation moren[place], unlabored. ABSENT: chest wall tenderness, wheezes Cardiovascular exam: PRESENT: RRR Pulses: PRESENT: normal radial pulses GI/Abdominal exam: PRESENT: soft, tenderness - right upper quadrant. ABSENT: distended, firm, guarding, rebound, rigid Rectal exam: PRESENT: deferred Extremities exam: ABSENT: clubbing Musculoskeletal exam: ABSENT: deformity Neurological exam: PRESENT: alert, awake, oriented to person, oriented to place, oriented to time, oriented to situation, CN II-XII grossly intact. ABSENT: motor sensory deficit Psychiatric exam: ABSENT: agitated, anxious, depressed Focused psych exam: ABSENT: delusional Skin exam: ABSENT: cyanosis, erythema, jaundice Results Laboratory Results: 03/05/19 22:20 03/05/19 22:20 03/05/19 03/05/19 03/05/19 22:20 22:20 22:20 WBC 12.7 H RBC 3.60 L Hgb 6.9 L Hct 22.8 L MCV 63 L MCH 19.1 L MCHC 30.1 L RDW 18.3 H Plt Count 654 H Seg Neutrophils % 72.8 VBG pH VBG pCO2 VBG HCO3 VBG Base Excess Sodium 136.6 L Potassium 3.5 L Chloride 99 Carbon Dioxide 24 Anion Gap 14 BUN 15 Creatinine 0.89 Est GFR ( Amer) > 60 Glucose 97 Lactic Acid 0.9 Calcium 8.5 Total Bilirubin 0.3 AST 29 Alkaline Phosphatase 110 Total Protein 6.6 Albumin 3.4 L Urine Color Urine Appearance Urine pH Ur Specific [place] Urine Protein Urine Glucose (UA) Urine Ketones Urine Blood Urine Nitrite Ur Leukocyte Esterase Urine WBC (Auto) Urine RBC (Auto) Blood Type Antibody Screen 03/05/19 03/05/19 03/05/19 22:20 23:07 23:50 WBC RBC Hgb Hct MCV MCH MCHC RDW Plt Count Seg Neutrophils % VBG pH 7.44 H VBG pCO2 34.9 L VBG HCO3 23.0 VBG Base Excess -1.0 Sodium Potassium Chloride Carbon Dioxide Anion Gap BUN Creatinine Est GFR ( Amer) Glucose Lactic Acid Calcium Total Bilirubin AST Alkaline Phosphatase Total Protein Albumin Urine Color STRAW Urine Appearance CLEAR Urine pH 6.0 Ur Specific [place] 1.004 Urine Protein NEGATIVE Urine Glucose (UA) NEGATIVE Urine Ketones NEGATIVE Urine Blood NEGATIVE Urine Nitrite NEGATIVE Ur Leukocyte Esterase NEGATIVE Urine WBC (Auto) 0 Urine RBC (Auto) 0 Blood Type O POSITIVE Antibody Screen NEGATIVE Impressions: Chest X-Ray 03/05/19 23:31 IMPRESSION: No acute cardiopulmonary abnormality. copyright 2010 [employer]- All Rights Reserved Abdomen/Pelvis CT 03/05/19 23:48 IMPRESSION: Post recent cholecystectomy with 8 x 2 x 3 cm fluid collection at the gallbladder fossa may indicate a seroma or biloma. Status: Image reviewed by me Assessment & Plan - Plan Summary Plan Summary: This is a 48-year-old male status post subtotal cholecystectomy for acute, gangrenous, perforated cholecystitis. Patient has evidence of bile leak on CT scan and HIDA. Patient is symptomatic. Patient has a history of a Nas-en-Y gastric bypass, therefore ERCP is not possible. I have discussed several options with the patient and his family. They have chosen laparoscopic/robotic exploration with oversewing of the gallbladder remnant, with the possibility of an open operation being necessary. Risks/benefits discussed, informed consent obtained, and all questions answered.
[2019-03-06] MEDS ORDERED: BUPIVACAINE HCL 0.25 % INJ/PF (2.5 MG/1 ML) 30 ML VIAL ONE (12:53)
[2019-03-06] MEDS ORDERED: FENTANYL CITRATE INJ/PF 100 MCG/2 ML AMPUL IV PRN ×3 (14:17)
[2019-03-06] MEDS ORDERED: DIPHENHYDRAMINE HCL 50 MG/ML VIAL IV PRN (14:17)
[2019-03-06] MEDS ORDERED: PROMETHAZINE HCL INJ 25 MG/1 ML VIAL IV PRN (14:17)
[2019-03-06] MEDS ORDERED: MEPERIDINE HCL/PF INJ 25 MG/1 ML DISP.SYRIN IV PRN (14:17)
[2019-03-06] MEDS: FENTANYL CITRATE INJ/PF 100 MCG/2 ML AMPUL ONE ×2 (16:25→16:30)
[2019-03-06] MEDS ORDERED: ACETAMINOPHEN 1,000 MG/100 ML RTUPB IV ONE (16:37)
[2019-03-06] MEDS: DEXTROSE 5%-LACTATED RINGERS 1,000 ML IV PRN (19:46)
[2019-03-07] MEDS: PIPERACILLIN SODIUM/TAZOBACTAM 3.375 GM in NORMAL SALINE 100 ML IV SCH ×4 (02:45→21:09)
[2019-03-07] MEDS: HYDROMORPHONE HCL INJ/PF 2 MG/ML AMPULE IV PRN ×4 (02:45→21:09)
[2019-03-07] MEDS: DEXTROSE 5%-LACTATED RINGERS 1,000 ML IV PRN ×2 (02:46→14:30)
[2019-03-07 04:13] LABS: HEMATOCRIT 26.3 % (37.9-51.0); HEMOGLOBIN 8.3 g/dL (13.5-17.0); MEAN CORPUSCULAR HEMOGLOBIN 20.8 pg (27.0-33.4); MEAN CORPUSCULAR HGB CONC 31.4 g/dL (32.0-36.0); MEAN CORPUSCULAR VOLUME 66 fl (80-97); PLATELET COUNT 622 10^3/uL (150-450); RED BLOOD COUNT 3.98 10^6/uL (4.35-5.55); RED CELL DISTRIBUTION WIDTH 21.4 % (11.5-14.0); WHITE BLOOD COUNT 14.5 10^3/uL (4.0-10.5)
[2019-03-07 04:32] LABS: ALBUMIN 2.8 g/dL (3.5-5.0); ALKALINE PHOSPHATASE 112 U/L (38-126); AMYLASE < 30 U/L (30-110); ANION GAP 9 (5-19); ASPARTATE AMINO TRANSFERASE 33 U/L (17-59); BILIRUBIN,DIRECT 0.1 mg/dL (0.0-0.4); BILIRUBIN,TOTAL 0.6 mg/dL (0.2-1.3); BLOOD UREA NITROGEN 12 mg/dL (7-20); CALCIUM 8.3 mg/dL (8.4-10.2); CARBON DIOXIDE 26 mmol/L (22-30); CHLORIDE 104 mmol/L (98-107); GLUCOSE 124 mg/dL (75-110); POTASSIUM 4.5 mmol/L (3.6-5.0); TOTAL PROTEIN 5.8 g/dL (6.3-8.2)
[2019-03-07 04:50] LABS: ABSOLUTE LYMPHOCYTES# (MANUAL) 0.3 10^3/uL (0.5-4.7); ABSOLUTE MONOCYTES # (MANUAL) 0.7 10^3/uL (0.1-1.4); BAND NEUTROPHILS % (MANUAL) 5 % (3-5); BASOPHILS % (MANUAL) 0 % (0-2); EOSINOPHILS % (MANUAL) 0 % (0-6); LYMPHOCYTES % (MANUAL) 2 % (13-45); MONOCYTES % (MANUAL) 5 % (3-13); SEGMENTED NEUTROPHILS % (MAN) 88 % (42-78); TOTAL CELLS COUNTED 100
[2019-03-07 04:51] LABS: ANISOCYTOSIS 3+; HYPOCHROMASIA 3+
[2019-03-07 04:52] LABS: PLATELET COMMENT INCREASED
--- NOTE | 2019-03-07 05:34 | Operative Report ---
Nonrecallable Operative Report DATE OF SURGERY: 03/06/19 PREOPERATIVE DIAGNOSIS: Bile leak after cholecystectomy POSTOPERATIVE DIAGNOSIS: Same as above OPERATION: Robot-assisted laparoscopic drainage of biloma, with abdominal washout and placement of drains. SURGEON: RONNIE CHAND ANESTHESIA: GA TISSUE REMOVED OR ALTERED: None COMPLICATIONS: Unable to close the gallbladder remnant due to the inadequacy of the tissues. ESTIMATED BLOOD LOSS: 50 cc PROCEDURE: Drains/implants: 1. 16 Portuguese Malecot drain (with the tip trimmed back) within the gallbladder remnant. This drain is tethered to the falciform ligament. 2. 15 Portuguese round Gerardo drain near the gallbladder fossa, extending above the liver. Procedure in detail: After informed consent was obtained, the patient was brought into the operating room and laid in the supine position. The area of the abdomen was prepped and draped in a normal sterile fashion. An infraumbilical incision was created with a 15 blade scalpel. Dissection was carried through the subcutaneous tissue using sharp and blunt dissection. The cicatrix was identified, grasped with a Efrem clamp, and retracted upwards. The linea alba fascia was incised sharply, the abdomen was entered sharply. The balloon trocar was inserted, and pneumoperitoneum was achieved. A left sided 8 mm robotic trocar was placed under direct laparoscopic visualization. 2 more 8 mm robotic trochars were placed in the right abdominal wall in similar fashion. The robot was then brought over the patient and docked appropriately. I then assumed my position at the surgeon's console. Under robotic/laparoscopic guidance, dissection was undertaken around the gallbladder fossa. There is a large amount of omentum adherent to the gallbladder fossa. This was taken down sharply. A large biloma was identified in the gallbladder fossa. Once the omentum was freed, the gallbladder remnant was easily identified. The remaining wall of the gallbladder was incredibly friable and unhealthy appearing. An attempt was made to suture the gallbladder remnant shut, however this was unsuccessful. The wall of the gallbladder remnant would not hold sutures. In light of this, it was felt prudent to irrigate the abdominal cavity and drain the bile leak. A 16 Portuguese Malecot drain was chosen. The tip was trimmed slightly. The Malecot was placed into the gallbladder remnant. The drain was tethered to the falciform ligament using 4-0 Vicryl suture. The Malecot drain was then brought out the lateralmost trocar site and sutured to the abdominal wall using 2-0 nylon suture. Next, the robot was undocked. Another drain (15 Portuguese round Gerardo drain) was placed into the medial right-sided robotic trocar. It was situated over the liver, and adjacent to the gallbladder fossa. It was also sutured to the skin using 2-0 nylon suture. The left-sided 8 mm robotic trocar was removed. The infraumbilical 12 mm trocar was removed, and pneumoperitoneum was relieved. The infraumbilical fascia was closed using 0 Vicryl suture in [id number] fashion. The overlying skin was closed using 4-0 Vicryl Rapide suture in subcuticular fashion. A dressing was placed, and the procedure was concluded. All sponge, instrument, and needle counts were correct x2. Condition: Fair.
[2019-03-07] MEDS: KETOROLAC TROMETHAMINE INJ/PF 30 MG/1 ML SDV IV PRN ×2 (09:09→17:08)
[2019-03-07] MEDS: ENOXAPARIN SODIUM INJ 40 MG/0.4 ML DISP.SYRIN SUBCUT SCH (09:09)
[2019-03-07] MEDS: OXYCODONE-ACETAMINOPHEN 5-325 MG TABLET PO PRN (11:56)
--- NOTE | 2019-03-07 17:37 | PDOC PROGRESS REPORT ---
Subjective Progress Note for:: 03/07/19 Reason For Visit: POSSIBLE BILOMA Physical Exam Vital Signs: Temp Pulse Resp BP Pulse Ox 98.6 F 79 17 143/84 H 100 03/07/19 17:00 03/07/19 17:00 03/07/19 17:00 03/07/19 17:00 03/07/19 17:00 Intake & Output 03/06/19 03/07/19 03/08/19 06:59 06:59 06:59 Intake Total 1350 6175 1345 Output Total 1740 515 Balance 1350 4435 830 Weight 89 kg 93.6 kg 93.6 kg Results Laboratory Results: 03/07/19 03:56 03/07/19 03:56 03/07/19 03/07/19 03:56 03:56 WBC 14.5 H RBC 3.98 L Hgb 8.3 L Hct 26.3 L MCV 66 L MCH 20.8 L MCHC 31.4 L RDW 21.4 H Plt Count 622 H Seg Neutrophils % Not Reportable Sodium 139.0 Potassium 4.5 Chloride 104 Carbon Dioxide 26 Anion Gap 9 BUN 12 Creatinine 0.78 Est GFR ( Amer) > 60 Glucose 124 H Calcium 8.3 L Total Bilirubin 0.6 AST 33 Alkaline Phosphatase 112 Total Protein 5.8 L Albumin 2.8 L Amylase < 30 L Lipase 35.1 Impressions: Chest X-Ray 03/05/19 23:31 IMPRESSION: No acute cardiopulmonary abnormality. copyright 2011 [employer]- All Rights Reserved Abdomen/Pelvis CT 03/05/19 23:48 IMPRESSION: Post recent cholecystectomy with 8 x 2 x 3 cm fluid collection at the gallbladder fossa may indicate a seroma or biloma. Assessment & Plan - Diagnosis (1) Bile leak, postoperative Is this a current diagnosis for this admission?: Yes - Time Time Spent with patient: Less than 15 minutes - Plan Summary Plan Summary: This is a 48-year-old male status post robotic/laparoscopic washout of a biloma, due to a cystic duct leak after cholecystectomy for acute/gangrenous cholecystitis. The patient's drains are productive of bilious fluid. He reports right upper quadrant pain, but denies fevers, chills, chest pain, shortness of breath, nausea, or vomiting. His current pain medication is adequately controlling his pain. I have encouraged him to ambulate and use his incentive spirometer. I have discussed his case with the hepatobiliary team at [facility]. They do have expertise in ERCP for patients who have had a gastric bypass. I believe the patient would greatly benefit from this service. I plan to allow the patient to recover and be discharged home. After several weeks of recovery, ERCP may be possible. Continue with current pain medication regimen. The plan has been discussed with the patient and his family.
[2019-03-08] MEDS: DEXTROSE 5%-LACTATED RINGERS 1,000 ML IV PRN ×2 (01:00→08:42)
[2019-03-08] MEDS: KETOROLAC TROMETHAMINE INJ/PF 30 MG/1 ML SDV IV PRN ×3 (01:00→17:38)
[2019-03-08] MEDS: PIPERACILLIN SODIUM/TAZOBACTAM 3.375 GM in NORMAL SALINE 100 ML IV SCH ×2 (03:53→08:42)
[2019-03-08] MEDS: HYDROMORPHONE HCL INJ/PF 2 MG/ML AMPULE IV PRN ×3 (03:58→20:22)
[2019-03-08] MEDS: OXYCODONE-ACETAMINOPHEN 5-325 MG TABLET PO PRN ×3 (08:43→23:18)
[2019-03-08] MEDS: ENOXAPARIN SODIUM INJ 40 MG/0.4 ML DISP.SYRIN SUBCUT SCH (09:20)
--- NOTE | 2019-03-08 11:38 | PDOC PROGRESS REPORT ---
Subjective Progress Note for:: 03/08/19 Reason For Visit: POSSIBLE BILOMA Physical Exam Vital Signs: Temp Pulse Resp BP Pulse Ox 97.9 F 64 16 146/84 H 100 03/08/19 08:00 03/08/19 08:00 03/08/19 08:00 03/08/19 08:00 03/08/19 08:00 Intake & Output 03/07/19 03/08/19 03/09/19 06:59 06:59 06:59 Intake Total 6129 2885 1540 Output Total 1740 1860 650 Balance 4435 1025 890 Weight 93.6 kg 93.6 kg Results Laboratory Results: 03/07/19 03:56 03/07/19 03:56 03/05/19 23:50 Clean Catch Midstream Urine Culture - Final NO GROWTH 2 DAYS Impressions: Chest X-Ray 03/05/19 23:31 IMPRESSION: No acute cardiopulmonary abnormality. copyright 2011 [employer]- All Rights Reserved Abdomen/Pelvis CT 03/05/19 23:48 IMPRESSION: Post recent cholecystectomy with 8 x 2 x 3 cm fluid collection at the gallbladder fossa may indicate a seroma or biloma. Assessment & Plan - Diagnosis (1) Bile leak, postoperative Is this a current diagnosis for this admission?: Yes - Time Time Spent with patient: Less than 15 minutes - Plan Summary Plan Summary: This is a 48-year-old male status post robotic/laparoscopic washout of a biloma, due to a cystic duct leak after cholecystectomy for acute/gangrenous cholecystitis. The patient's drains are productive of bilious fluid. He continues to report right upper quadrant pain, but denies fevers, chills, chest pain, shortness of breath, nausea, or vomiting. He is still requiring IV pain medications. I have encouraged him to ambulate and use his incentive spirometer. I have discussed his case with the hepatobiliary team at [facility]. They do have expertise in ERCP for patients who have had a gastric bypass. I believe the patient would greatly benefit from this service. I plan to allow the patient to recover and be discharged home. After several weeks of recovery, ERCP may be possible. Cont current supportive care. D/c Abx D/c IV fluids
[2019-03-09] MEDS: HYDROMORPHONE HCL INJ/PF 2 MG/ML AMPULE IV PRN ×5 (00:34→22:02)
[2019-03-09] MEDS: KETOROLAC TROMETHAMINE INJ/PF 30 MG/1 ML SDV IV PRN ×3 (01:45→19:55)
[2019-03-09] MEDS: OXYCODONE-ACETAMINOPHEN 5-325 MG TABLET PO PRN ×3 (03:51→23:10)
[2019-03-09] MEDS: ENOXAPARIN SODIUM INJ 40 MG/0.4 ML DISP.SYRIN SUBCUT SCH (10:28)
--- NOTE | 2019-03-09 16:52 | PDOC PROGRESS REPORT ---
Subjective Reason For Visit: BILOMA,S/P LAP W/DRAIN PLACEMENT Physical Exam Vital Signs: Temp Pulse Resp BP Pulse Ox 99.1 F 89 16 135/82 H 99 03/09/19 16:00 03/09/19 16:00 03/09/19 16:00 03/09/19 16:00 03/09/19 16:00 Intake & Output 03/08/19 03/09/19 03/10/19 06:59 06:59 06:59 Intake Total 2885 3564 480 Output Total 1860 1300 Balance 1025 2264 480 Weight 93.6 kg 93.8 kg Results Laboratory Results: 03/07/19 03:56 03/07/19 03:56 03/05/19 23:07 Blood Blood Culture (PCR) - Final Impressions: Chest X-Ray 03/05/19 23:31 IMPRESSION: No acute cardiopulmonary abnormality. copyright 2010 [employer]- All Rights Reserved Abdomen/Pelvis CT 03/05/19 23:48 IMPRESSION: Post recent cholecystectomy with 8 x 2 x 3 cm fluid collection at the gallbladder fossa may indicate a seroma or biloma. Assessment & Plan - Diagnosis (1) Bile leak, postoperative Is this a current diagnosis for this admission?: Yes - Time Time Spent with patient: Less than 15 minutes - Plan Summary Plan Summary: This is a 48-year-old male status post robotic/laparoscopic washout of a biloma, due to a cystic duct leak after cholecystectomy for acute/gangrenous cholecystitis. The patient's drains are productive of bilious fluid. He continues to report right upper quadrant pain, but denies fevers, chills, chest pain, shortness of breath, nausea, or vomiting. He is still requiring IV pain medications. I have encouraged him to ambulate and use his incentive spirometer. Consult social media developer to evaluate for home fpc care. I have discussed his case with the hepatobiliary team at [facility]. They do have expertise in ERCP for patients who have had a gastric bypass. I believe the patient would greatly benefit from this service. I plan to allow the patient to recover and be discharged home. After several weeks of recovery, ERCP may be possible. Cont current supportive care.
[2019-03-10] MEDS: HYDROMORPHONE HCL INJ/PF 2 MG/ML AMPULE IV PRN ×4 (02:06→23:56)
[2019-03-10] MEDS: OXYCODONE-ACETAMINOPHEN 5-325 MG TABLET PO PRN ×2 (03:41→11:55)
[2019-03-10] MEDS: KETOROLAC TROMETHAMINE INJ/PF 30 MG/1 ML SDV IV PRN ×2 (04:36→17:25)
[2019-03-10] MEDS: ENOXAPARIN SODIUM INJ 40 MG/0.4 ML DISP.SYRIN SUBCUT SCH (09:25)
[2019-03-10] MEDS: DOCUSATE SODIUM 100 MG CAPSULE PO SCH ×2 (09:26→17:54)
--- NOTE | 2019-03-10 16:37 | PDOC PROGRESS REPORT ---
Subjective Progress Note for:: 03/10/19 Reason For Visit: BILOMA,S/P LAP W/DRAIN PLACEMENT Physical Exam Vital Signs: Temp Pulse Resp BP Pulse Ox 99.3 F 100 18 129/82 H 98 03/10/19 16:00 03/10/19 16:00 03/10/19 16:00 03/10/19 16:00 03/10/19 16:00 Intake & Output 03/09/19 03/10/19 03/11/19 06:59 06:59 06:59 Intake Total 3564 1970 120 Output Total 1300 320 100 Balance 2264 1650 20 Weight 93.8 kg 94.2 kg 94.2 kg Results Laboratory Results: 03/07/19 03:56 03/07/19 03:56 03/05/19 23:07 Blood Blood Culture (PCR) - Final 03/05/19 23:07 Blood Blood Culture - Final Micrococcus Species Impressions: Chest X-Ray 03/05/19 23:31 IMPRESSION: No acute cardiopulmonary abnormality. copyright 2011 [employer]- All Rights Reserved Abdomen/Pelvis CT 03/05/19 23:48 IMPRESSION: Post recent cholecystectomy with 8 x 2 x 3 cm fluid collection at the gallbladder fossa may indicate a seroma or biloma. Assessment & Plan - Diagnosis (1) Bile leak, postoperative Is this a current diagnosis for this admission?: Yes - Time Time Spent with patient: Less than 15 minutes - Plan Summary Plan Summary: This is a 48-year-old male status post robotic/laparoscopic washout of a biloma, due to a cystic duct leak after cholecystectomy for acute/gangrenous cholecystitis. The patient's drains are productive of bilious fluid. He continues to report right upper quadrant pain, but denies fevers, chills, chest pain, shortness of breath, nausea, or vomiting. He is still requiring IV pain medications. I have encouraged him to ambulate and use his incentive spirometer. Consult director social service to evaluate for home retirement care. I have discussed his case with the hepatobiliary team at [facility]. They do have expertise in ERCP for patients who have had a gastric bypass. I believe the patient would greatly benefit from this service. I plan to allow the patient to recover and be discharged home. After several weeks of recovery, ERCP may be possible. Cont current supportive care.
[2019-03-11] MEDS: KETOROLAC TROMETHAMINE INJ/PF 30 MG/1 ML SDV IV PRN (03:16)
[2019-03-11 04:31] LABS: ABSOLUTE EOSINOPHILS # (AUTO) 0.2 10^3/uL (0.0-0.6); ABSOLUTE LYMPHOCYTES (AUTO) 1.1 10^3/uL (0.5-4.7); ABSOLUTE MONOCYTES (AUTO) 1.1 10^3/uL (0.1-1.4); ABSOLUTE NEUT (AUTO) 9.1 10^3/uL (1.7-8.2); BASOPHILS % (AUTO) 0.4 % (0-2); EOSINOPHILS % (AUTO) 1.9 % (0-6); HEMATOCRIT 26.4 % (37.9-51.0); HEMOGLOBIN 8.2 g/dL (13.5-17.0); LYMPHOCYTES % (AUTO) 9.5 % (13-45); MEAN CORPUSCULAR HEMOGLOBIN 20.7 pg (27.0-33.4); MEAN CORPUSCULAR VOLUME 67 fl (80-97); MONOCYTES % (AUTO) 9.6 % (3-13); PLATELET COUNT 627 10^3/uL (150-450); RED BLOOD COUNT 3.95 10^6/uL (4.35-5.55); RED CELL DISTRIBUTION WIDTH 22.9 % (11.5-14.0); SEGMENTED NEUTROPHILS % (AUTO) 78.6 % (42-78); TOTAL CELLS COUNTED % (AUTO) 100 %; WHITE BLOOD COUNT 11.6 10^3/uL (4.0-10.5)
[2019-03-11 04:57] LABS: ALBUMIN 2.8 g/dL (3.5-5.0); ALKALINE PHOSPHATASE 81 U/L (38-126); ANION GAP 8 (5-19); ASPARTATE AMINO TRANSFERASE 15 U/L (17-59); BILIRUBIN,DIRECT 0.1 mg/dL (0.0-0.4); BILIRUBIN,TOTAL 0.4 mg/dL (0.2-1.3); BLOOD UREA NITROGEN 18 mg/dL (7-20); CALCIUM 8.6 mg/dL (8.4-10.2); CARBON DIOXIDE 26 mmol/L (22-30); CHLORIDE 103 mmol/L (98-107); GLUCOSE 88 mg/dL (75-110); POTASSIUM 4.3 mmol/L (3.6-5.0); TOTAL PROTEIN 5.7 g/dL (6.3-8.2)
[2019-03-11] MEDS: OXYCODONE-ACETAMINOPHEN 5-325 MG TABLET PO PRN ×4 (07:23→21:00)
[2019-03-11] MEDS: HYDROMORPHONE HCL INJ/PF 2 MG/ML AMPULE IV PRN ×2 (09:32→14:00)
[2019-03-11] MEDS: DOCUSATE SODIUM 100 MG CAPSULE PO SCH ×2 (09:32→17:15)
[2019-03-11] MEDS: ENOXAPARIN SODIUM INJ 40 MG/0.4 ML DISP.SYRIN SUBCUT SCH (12:56)
[2019-03-12] MEDS: OXYCODONE-ACETAMINOPHEN 5-325 MG TABLET PO PRN (02:28)
[2019-03-12] MEDS: HYDROMORPHONE HCL INJ/PF 2 MG/ML AMPULE IV PRN ×2 (08:00→14:07)
[2019-03-12] MEDS: DOCUSATE SODIUM 100 MG CAPSULE PO SCH ×2 (10:26→17:34)
[2019-03-12] MEDS: ENOXAPARIN SODIUM INJ 40 MG/0.4 ML DISP.SYRIN SUBCUT SCH (10:27)
--- NOTE | 2019-03-12 11:32 | PDOC PROGRESS REPORT ---
Subjective Progress Note for:: 03/11/19 Reason For Visit: BILOMA,S/P LAP W/DRAIN PLACEMENT Physical Exam Vital Signs: Intake & Output Results Laboratory Results: 03/11/19 03:49 03/11/19 03:49 Impressions: Chest X-Ray 03/05/19 23:31 IMPRESSION: No acute cardiopulmonary abnormality. copyright 2011 [employer]- All Rights Reserved Abdomen/Pelvis CT 03/05/19 23:48 IMPRESSION: Post recent cholecystectomy with 8 x 2 x 3 cm fluid collection at the gallbladder fossa may indicate a seroma or biloma. Assessment & Plan - Diagnosis (1) Bile leak, postoperative Is this a current diagnosis for this admission?: Yes - Time Time Spent with patient: Less than 15 minutes - Plan Summary Plan Summary: This is a 48-year-old male status post robotic/laparoscopic washout of a biloma, due to a cystic duct leak after cholecystectomy for acute/gangrenous cholecystitis. The patient's drains are productive of bilious fluid. He continues to report right upper quadrant pain, but denies fevers, chills, chest pain, shortness of breath, nausea, or vomiting. He is still requiring IV pain medications. I have encouraged him to ambulate and use his incentive spirometer. Consult licensed master social worker to evaluate for home snf care. Increase oxycodone in an effort to decrease his IV pain medication requirement. I have discussed his case with the hepatobiliary team at [facility]. They do have expertise in ERCP for patients who have had a gastric bypass. I believe the patient would greatly benefit from this service. I plan to allow the patient to recover and be discharged home. After several weeks of recovery, ERCP may be possible. Cont current supportive care.
--- NOTE | 2019-03-12 11:34 | PDOC PROGRESS REPORT ---
Subjective Progress Note for:: 03/12/19 Reason For Visit: BILOMA,S/P LAP W/DRAIN PLACEMENT Physical Exam Vital Signs: Temp Pulse Resp BP Pulse Ox 98.5 F 88 16 135/75 H 96 03/12/19 07:28 03/12/19 07:28 03/12/19 07:28 03/12/19 07:28 03/12/19 07:28 Intake & Output 03/11/19 03/12/19 03/13/19 06:59 06:59 06:59 Intake Total 660 1160 240 Output Total 790 440 Balance -130 720 240 Weight 93.9 kg 93.7 kg Results Laboratory Results: 03/11/19 03:49 03/11/19 03:49 Impressions: Chest X-Ray 03/05/19 23:31 IMPRESSION: No acute cardiopulmonary abnormality. copyright 2011 [employer]- All Rights Reserved Abdomen/Pelvis CT 03/05/19 23:48 IMPRESSION: Post recent cholecystectomy with 8 x 2 x 3 cm fluid collection at the gallbladder fossa may indicate a seroma or biloma. Assessment & Plan - Diagnosis (1) Bile leak, postoperative Is this a current diagnosis for this admission?: Yes - Time Time Spent with patient: Less than 15 minutes - Plan Summary Plan Summary: This is a 48-year-old male status post robotic/laparoscopic washout of a biloma, due to a cystic duct leak after cholecystectomy for acute/gangrenous cholecystitis. The patient's drains are productive of bilious fluid. He continues to report right upper quadrant pain, but denies fevers, chills, chest pain, shortness of breath, nausea, or vomiting. He is still requiring IV pain medications. Yesterday, his percocet was increased to 10mg. He is still requiring IV Dilaudid. I will increase the amount of oxycodone again today in an effort to reduce his IV pain medication demand. I will also give him scheduled tylenol to assist with pain control. I have encouraged him to ambulate and use his incentive spirometer. Consult social media assistant to evaluate for home halfway care. I have discussed his case with the hepatobiliary team at [facility]. They do have expertise in ERCP for patients who have had a gastric bypass. I believe the patient would greatly benefit from this service. I plan to allow the patient to recover and be discharged home. After several weeks of recovery, ERCP may be possible. Cont current supportive care.
[2019-03-12] MEDS: OXYCODONE HCL IR 5 MG TABLET PO PRN ×3 (12:31→21:11)
[2019-03-12] MEDS: ACETAMINOPHEN 325 MG TABLET PO SCH ×2 (14:08→21:11)
[2019-03-12] MEDS: POLYETHYLENE GLYCOL 3350 POWDER 17 GM/1 PACKET PO SCH (17:34)
[2019-03-13] MEDS: OXYCODONE HCL IR 5 MG TABLET PO PRN ×4 (01:21→21:21)
[2019-03-13] MEDS: ACETAMINOPHEN 325 MG TABLET PO SCH ×3 (05:36→21:22)
[2019-03-13] MEDS: POLYETHYLENE GLYCOL 3350 POWDER 17 GM/1 PACKET PO SCH ×2 (09:45→17:13)
[2019-03-13] MEDS: DOCUSATE SODIUM 100 MG CAPSULE PO SCH ×2 (09:45→17:13)
[2019-03-13] MEDS: ENOXAPARIN SODIUM INJ 40 MG/0.4 ML DISP.SYRIN SUBCUT SCH (09:50)
--- NOTE | 2019-03-13 11:03 | PDOC PROGRESS REPORT ---
Subjective Progress Note for:: 03/13/19 Reason For Visit: BILOMA,S/P LAP W/DRAIN PLACEMENT Physical Exam Vital Signs: Temp Pulse Resp BP Pulse Ox 99.2 F 100 16 131/67 H 98 03/13/19 08:00 03/13/19 08:00 03/13/19 08:00 03/13/19 08:00 03/13/19 08:00 Intake & Output 03/12/19 03/13/19 03/14/19 06:59 06:59 06:59 Intake Total 1160 740 Output Total 440 30 Balance 720 710 Weight 93.7 kg 92.5 kg Results Laboratory Results: 03/11/19 03:49 03/11/19 03:49 Impressions: Chest X-Ray 03/05/19 23:31 IMPRESSION: No acute cardiopulmonary abnormality. copyright 2011 [employer]- All Rights Reserved Abdomen/Pelvis CT 03/05/19 23:48 IMPRESSION: Post recent cholecystectomy with 8 x 2 x 3 cm fluid collection at the gallbladder fossa may indicate a seroma or biloma. Assessment & Plan - Diagnosis (1) Bile leak, postoperative Is this a current diagnosis for this admission?: Yes - Time Time Spent with patient: Less than 15 minutes - Plan Summary Plan Summary: This is a 48-year-old male status post robotic/laparoscopic washout of a biloma, due to a cystic duct leak after cholecystectomy for acute/gangrenous cholecystitis. The patient's drains are productive of bilious fluid. He continues to report right upper quadrant pain, but denies fevers, chills, chest pain, shortness of breath, nausea, or vomiting. His IV pain medication req uirement has lessened with the increase in oxycodone. I have encouraged him to ambulate and use his incentive spirometer. Consult social studies teacher to evaluate for home long-term care. I have discussed his case with the hepatobiliary team at [facility]. They do have expertise in ERCP for patients who have had a gastric bypass. I believe the patient would greatly benefit from this service. I plan to allow the patient to recover and be discharged home. After several weeks of recovery, ERCP may be possible. Cont current supportive care.
[2019-03-14] MEDS: OXYCODONE HCL IR 5 MG TABLET PO PRN ×3 (01:36→12:51)
[2019-03-14] MEDS: ACETAMINOPHEN 325 MG TABLET PO SCH ×2 (06:05→14:13)
[2019-03-14 06:41] LABS: ABSOLUTE EOSINOPHILS # (AUTO) 0.2 10^3/uL (0.0-0.6); ABSOLUTE LYMPHOCYTES (AUTO) 1.1 10^3/uL (0.5-4.7); ABSOLUTE MONOCYTES (AUTO) 0.8 10^3/uL (0.1-1.4); ABSOLUTE NEUT (AUTO) 4.9 10^3/uL (1.7-8.2); BASOPHILS % (AUTO) 0.7 % (0-2); EOSINOPHILS % (AUTO) 2.7 % (0-6); HEMATOCRIT 24.5 % (37.9-51.0); LYMPHOCYTES % (AUTO) 15.6 % (13-45); MEAN CORPUSCULAR HEMOGLOBIN 21.2 pg (27.0-33.4); MEAN CORPUSCULAR HGB CONC 31.5 g/dL (32.0-36.0); MEAN CORPUSCULAR VOLUME 67 fl (80-97); MONOCYTES % (AUTO) 11.2 % (3-13); PLATELET COUNT 521 10^3/uL (150-450); RED BLOOD COUNT 3.63 10^6/uL (4.35-5.55); RED CELL DISTRIBUTION WIDTH 22.2 % (11.5-14.0); SEGMENTED NEUTROPHILS % (AUTO) 69.8 % (42-78); TOTAL CELLS COUNTED % (AUTO) 100 %
[2019-03-14 07:00] LABS: ALBUMIN 3.1 g/dL (3.5-5.0); ALKALINE PHOSPHATASE 266 U/L (38-126); ANION GAP 9 (5-19); ASPARTATE AMINO TRANSFERASE 181 U/L (17-59); BILIRUBIN,DIRECT 0.2 mg/dL (0.0-0.4); BILIRUBIN,TOTAL 0.5 mg/dL (0.2-1.3); BLOOD UREA NITROGEN 9 mg/dL (7-20); CALCIUM 8.9 mg/dL (8.4-10.2); CARBON DIOXIDE 28 mmol/L (22-30); CHLORIDE 100 mmol/L (98-107); GLUCOSE 85 mg/dL (75-110); POTASSIUM 4.6 mmol/L (3.6-5.0); TOTAL PROTEIN 6.3 g/dL (6.3-8.2)
[2019-03-14 07:21] LABS: HEMOGLOBIN 7.7 g/dL (13.5-17.0)
[2019-03-14] MEDS: DOCUSATE SODIUM 100 MG CAPSULE PO SCH (10:09)
[2019-03-14] MEDS: ENOXAPARIN SODIUM INJ 40 MG/0.4 ML DISP.SYRIN SUBCUT SCH (10:10)
[2019-03-14] MEDS: POLYETHYLENE GLYCOL 3350 POWDER 17 GM/1 PACKET PO SCH (10:10)
[2019-03-14 14:20] VITALS: BP 119/72
--- NOTE | 2019-03-29 13:35 | PDOC DISCHARGE SUMMARY ---
General - Admit/Disc Date/PCP Admission Date/Primary Care Provider: 03/06/19 01:51 Discharge Date: 03/14/19 - Discharge Diagnosis Final Diagnosis: Bile leak after cholecystectomy - Assessment Summary: This is a 48-year-old male status post cholecystectomy for perforated, gangrenous, purulent cholecystitis. The patient represented with right upper quadrant pain, fevers, and chills. A CT scan showed a large biloma in the gallbladder fossa. The patient had a history of gastric bypass, therefore ERCP would be impossible at this institution. Secondary to this, the patient was taken for operative drainage of his biloma. During surgery an attempt was made to suture the cystic duct stump closed, however it was unsuccessful. The abdomen was washed, and drains were placed. The patient was then taken to the floor in stable condition. While on the floor, the patient was treated with intravenous antibiotics. He required intravenous narcotics for several days after the surgery. Eventually, the patient began ambulating, tolerating a diet, and his antibiotics were discontinued. By 03/14/2019 the patient was ambulating, tolerating a diet, he was afebrile, and it was felt that he had reached maximal hospital benefit. At this time he was fit for discharge. - Additional Information Resuscitation Status: Full Code Discharge Diet: As Tolerated Discharge Activity: No Lifting Over 10 Pounds, No Lifting/Push/Pulling Referrals: RONNIE CHAND MD [ACTIVE STAFF] - 03/22/19 8:45 am Home Medications: Docusate Sodium [Colace 100 mg Capsule] 100 mg PO BID 03/06/19 Ferrous Sulfate [Feosol 325 mg Tablet] 325 mg PO BID 03/06/19 Oxycodone HCl/Acetaminophen [Percocet 5-325 mg Tablet] 1 tab PO Q4HP PRN 03/06/19 Simethicone [Gas Relief 80] 80 mg PO DAILYP PRN 03/06/19 Additional Information: Discharge home. Diet as tolerated. Activity: No lifting greater than 10 pounds. Follow-up with me in 7 to 10 days. I will arrange for the patient to be seen at [facility] to address his bile leak. He is to contact me immediately with any questions or concerns. History of Present Illiness History of Present Illness: JOSÉ MIGUEL CONNELL is a 48 year old male who is approximately 2 weeks status post laparoscopic, fenestrated subtotal cholecystectomy. The patient was doing very well. His right upper quadrant drain was draining minimal amounts of f luid. It was clear in color, and nonbilious. The drain was removed in the office on . The patient did well and Thursday. Thursday evening the patient began running fevers as high as 102 F. At that time, the patient also began experiencing increasing amounts of right upper quadrant pain. His pain is 8 out of 10 at worst. It does not radiate. Nothing makes it better. Palpation and movement make it worse. He presented to the emergency department for evaluation. A CT scan was performed, showing a fluid collection in the gallbladder fossa. a HIDA scan was also ordered, demonstrating flow of radiotracer into the gallbladder fossa. This confirmed a bile leak. The patient reports right upper quadrant pain, nausea, fevers, chills. He denies chest pain, shortness of breath, headache, dizziness, orthostasis, vomiting, melena, hematochezia, hematemesis, paresthesias, weakness. Physical Exam Vital Signs: Temp Pulse Resp BP Pulse Ox 98.4 F 83 18 119/72 99 03/14/19 14:17 03/14/19 14:17 03/14/19 14:17 03/14/19 14:17 03/14/19 14:17 Results Laboratory Results: WBC 7.0 10^3/uL (4.0-10.5) 03/14/19 06:01 RBC 3.63 10^6/uL (4.35-5.55) L 03/14/19 06:01 Hgb 7.7 g/dL (13.5-17.0) L 03/14/19 06:01 Hct 24.5 % (37.9-51.0) L 03/14/19 06:01 MCV 67 fl (80-97) L 03/14/19 06:01 MCH 21.2 pg (27.0-33.4) L 03/14/19 06:01 MCHC 31.5 g/dL (32.0-36.0) L 03/14/19 06:01 RDW 22.2 % (11.5-14.0) H 03/14/19 06:01 Plt Count 521 10^3/uL (150-450) H 03/14/19 06:01 Lymph % (Auto) 15.6 % (13-45) 03/14/19 06:01 [place]field % (Auto) 11.2 % (3-13) 03/14/19 06:01 Eos % (Auto) 2.7 % (0-6) 03/14/19 06:01 Baso % (Auto) 0.7 % (0-2) 03/14/19 06:01 Absolute Neuts (auto) 4.9 10^3/uL (1.7-8.2) 03/14/19 06:01 Absolute Lymphs (auto) 1.1 10^3/uL (0.5-4.7) 03/14/19 06:01 Absolute Monos (auto) 0.8 10^3/uL (0.1-1.4) 03/14/19 06:01 Absolute Eos (auto) 0.2 10^3/uL (0.0-0.6) 03/14/19 06:01 Absolute Basos (auto) 0.0 10^3/uL (0.0-0.2) 03/14/19 06:01 Total Counted 100 03/07/19 03:56 Seg Neutrophils % 69.8 % (42-78) 03/14/19 06:01 Seg Neuts % (Manual) 88 % (42-78) H 03/07/19 03:56 Band Neutrophils % 5 % (3-5) 03/07/19 03:56 Lymphocytes % (Manual) 2 % (13-45) L 03/07/19 03:56 Monocytes % (Manual) 5 % (3-13) 03/07/19 03:56 Eosinophils % (Manual) 0 % (0-6) 03/07/19 03:56 Basophils % (Manual) 0 % (0-2) 03/07/19 03:56 Abs Neuts (Manual) 13.5 10^3/uL (1.7-8.2) H 03/07/19 03:56 Abs Lymphs (Manual) 0.3 10^3/uL (0.5-4.7) L 03/07/19 03:56 Abs Monocytes (Manual) 0.7 10^3/uL (0.1-1.4) 03/07/19 03:56 Absolute Eos (Manual) 0.0 10^3/uL (0.0-0.6) 03/07/19 03:56 Abs Basophils (Manual) 0.0 10^3/uL (0.0-0.2) 03/07/19 03:56 Platelet Comment INCREASED 03/07/19 03:56 Hypochromasia 3+ 03/07/19 03:56 Anisocytosis 3+ 03/07/19 03:56 Microcytosis 2+ 03/07/19 03:56 PT 14.7 SEC (11.4-15.4) 03/05/19 22:20 INR 1.14 03/05/19 22:20 VBG pH 7.44 (7.30-7.42) H 03/05/19 22:20 VBG pCO2 34.9 mmHg (35-63) L 03/05/19 22:20 VBG HCO3 23.0 mmol/L (20-32) 03/05/19 22:20 VBG Base Excess -1.0 mmol/L 03/05/19 22:20 Sodium 136.9 mmol/L (137-145) L 03/14/19 06:01 Potassium 4.6 mmol/L (3.6-5.0) 03/14/19 06:01 Chloride 100 mmol/L (98-107) 03/14/19 06:01 Carbon Dioxide 28 mmol/L (22-30) 03/14/19 06:01 Anion Gap 9 (5-19) 03/14/19 06:01 BUN 9 mg/dL (7-20) 03/14/19 06:01 Creatinine 0.69 mg/dL (0.52-1.25) 03/14/19 06:01 Est GFR ( Amer) > 60 (>60) 03/14/19 06:01 Est GFR (MDRD) Non-Af > 60 (>60) 03/14/19 06:01 Glucose 85 mg/dL (75-110) 03/14/19 06:01 POC Glucose 110 mg/dL (70-110) 03/05/19 22:30 Lactic Acid 0.9 mmol/L (0.7-2.1) 03/05/19 22:20 Calcium 8.9 mg/dL (8.4-10.2) 03/14/19 06:01 Total Bilirubin 0.5 mg/dL (0.2-1.3) 03/14/19 06:01 Direct Bilirubin 0.2 mg/dL (0.0-0.4) 03/14/19 06:01 Neonat Total Bilirubin Not Reportable 03/14/19 06:01 Neonat Direct Bilirubin Not Reportable 03/14/19 06:01 Neonat Indirect Bili Not Reportable 03/14/19 06:01 AST 181 U/L (17-59) H 03/14/19 06:01 ALT 235 U/L (<50) 03/14/19 06:01 Alkaline Phosphatase 266 U/L (38-126) H 03/14/19 06:01 Total Protein 6.3 g/dL (6.3-8.2) 03/14/19 06:01 Albumin 3.1 g/dL (3.5-5.0) L 03/14/19 06:01 Amylase < 30 U/L (30-110) L 03/07/19 03:56 Lipase 35.1 U/L (23-300) 03/07/19 03:56 Urine Color STRAW 03/05/19 23:50 Urine Appearance CLEAR 03/05/19 23:50 Urine pH 6.0 (5.0-9.0) 03/05/19 23:50 Ur Specific [place]ak[place] 1.004 03/05/19 23:50 Urine Protein NEGATIVE mg/dL (NEGATIVE) 03/05/19 23:50 Urine Glucose (UA) NEGATIVE mg/dL (NEGATIVE) 03/05/19 23:50 Urine Ketones NEGATIVE mg/dL (NEGATIVE) 03/05/19 23:50 Urine Blood NEGATIVE (NEGATIVE) 03/05/19 23:50 Urine Nitrite NEGATIVE (NEGATIVE) 03/05/19 23:50 Urine Bilirubin NEGATIVE (NEGATIVE) 03/05/19 23:50 Urine Urobilinogen NEGATIVE mg/dL (<2.0) 03/05/19 23:50 Ur Leukocyte Esterase NEGATIVE (NEGATIVE) 03/05/19 23:50 Urine WBC (Auto) 0 /HPF 03/05/19 23:50 Urine RBC (Auto) 0 /HPF 03/05/19 23:50 Urine Mucus (Auto) RARE /LPF 03/05/19 23:50 Urine Ascorbic Acid NEGATIVE (NEGATIVE) 10/12/19 23:50 Blood Type O POSITIVE 03/05/19 23:07 Blood Type Confirm O POSITIVE 03/05/19 23:40 Antibody Screen NEGATIVE 03/05/19 23:07 Crossmatch See Detail 03/05/19 23:07 Impressions: Chest X-Ray 03/05/19 23:31 IMPRESSION: No acute cardiopulmonary abnormality. copyright 2011 [employer]- All Rights Reserved Abdomen/Pelvis CT 03/05/19 23:48 IMPRESSION: Post recent cholecystectomy with 8 x 2 x 3 cm fluid collection at the gallbladder fossa may indicate a seroma or biloma.
== END 2019-03-14 14:30 | disposition home health service (06) | DRG 446 ==
LOC: ER 21:51 → EH 03-06 01:51 → OBSVTOIN 03-06 01:51 → INTOOBSV 03-06 01:51 → 4W 03-06 04:50
PROVIDERS: ADMIT Surgery; ATTEND Surgery
PROC: 8E0W4CZ Robotic Assisted Procedure of Trunk Region, Percutaneous Endoscopic Approach (ICD-10-PCS; 2019-03-06)
PROC: 30233N1 Transfusion of Nonautologous Red Blood Cells into Peripheral Vein, Percutaneous Approach (ICD-10-PCS; 2019-03-06)
PROC: 0W9G40Z Drainage of Peritoneal Cavity with Drainage Device, Percutaneous Endoscopic Approach (ICD-10-PCS; principal; 2019-03-06 12:00)
DX: K91.5 Postcholecystectomy syndrome (principal); D64.9 Anemia, unspecified; Y83.6 Removal of other organ (partial) (total) as the cause of abnormal reaction of the patient, or of later complication, without mention of misadventure at the time of the procedure; Z98.84 Bariatric surgery status; Z79.899 Other long term (current) drug therapy; Z88.6 Allergy status to analgesic agent; Z79.891 Long term (current) use of opiate analgesic
CPT/HCPCS: 36415; 36430; 71046; 74177; 78226; 790; 80053; 81001; 82150; 82803; 82962; 83605; 83690; 85025; 85610; 86850; 86900; 86901; 86920; 87040; 87077; 87086; 87150; 94799; 99285; A9537; C1729; G0378; J0131; J0330; J1100; J1170; J1650; J1885; J2250; J2543; J2704; J2710; J3010; J3490; J7030; J7050; J7121; P9016; Q9969

== ENCOUNTER → 2019-03-24 | Outpatient (CLI) | payer SELFPAY ==
[2019-03-24 12:09] LABS: ABSOLUTE EOSINOPHILS # (AUTO) 0.1 10^3/uL (0.0-0.6); ABSOLUTE LYMPHOCYTES (AUTO) 0.9 10^3/uL (0.5-4.7); ABSOLUTE MONOCYTES (AUTO) 0.4 10^3/uL (0.1-1.4); ABSOLUTE NEUT (AUTO) 5.3 10^3/uL (1.7-8.2); BASOPHILS % (AUTO) 0.7 % (0-2); EOSINOPHILS % (AUTO) 1.6 % (0-6); HEMOGLOBIN 8.8 g/dL (13.5-17.0); LYMPHOCYTES % (AUTO) 13.5 % (13-45); MEAN CORPUSCULAR HEMOGLOBIN 21.4 pg (27.0-33.4); MEAN CORPUSCULAR HGB CONC 31.6 g/dL (32.0-36.0); MEAN CORPUSCULAR VOLUME 68 fl (80-97); PLATELET COUNT 660 10^3/uL (150-450); RED BLOOD COUNT 4.14 10^6/uL (4.35-5.55); RED CELL DISTRIBUTION WIDTH 22.8 % (11.5-14.0); SEGMENTED NEUTROPHILS % (AUTO) 78.2 % (42-78); TOTAL CELLS COUNTED % (AUTO) 100 %; WHITE BLOOD COUNT 6.8 10^3/uL (4.0-10.5)
[2019-03-24 12:34] LABS: ALBUMIN 3.6 g/dL (3.5-5.0); ALKALINE PHOSPHATASE 377 U/L (38-126); ANION GAP 9 (5-19); ASPARTATE AMINO TRANSFERASE 32 U/L (17-59); BILIRUBIN,DIRECT 0.2 mg/dL (0.0-0.4); BILIRUBIN,TOTAL 0.4 mg/dL (0.2-1.3); BLOOD UREA NITROGEN 10 mg/dL (7-20); CALCIUM 9.2 mg/dL (8.4-10.2); CARBON DIOXIDE 26 mmol/L (22-30); CHLORIDE 104 mmol/L (98-107); GLUCOSE 100 mg/dL (75-110); POTASSIUM 4.6 mmol/L (3.6-5.0); TOTAL PROTEIN 6.6 g/dL (6.3-8.2)
== END ==
LOC: OD 10:58
PROVIDERS: ATTEND Surgery
DX: K91.89 Other postprocedural complications and disorders of digestive system (principal); R50.9 Fever, unspecified
CPT/HCPCS: 36415; 80053; 85025

== ENCOUNTER → 2019-03-30 | Outpatient (CLI) | payer SELFPAY ==
--- NOTE | 2019-03-30 14:29 | RADIOLOGY REPORT (SQ) ---
EXAM DESCRIPTION: CT ABD/PELVIS NO ORAL OR IV COMPLETED DATE/TIME: 03/30/2019 2:04 pm REASON FOR STUDY: ABD PAIN (R10.9), BILE LEAK (K83.9) K83.9 DISEASE OF BILIARY TRACT, UNSPECIFIED R 10.9 UNSPECIFIED ABDOMINAL PAIN COMPARISON: 02/19/2019 TECHNIQUE: CT scan of the abdomen and pelvis performed without intravenous or oral contrast. Images reviewed with lung, soft tissue, and bone windows. Reconstructed coronal and sagittal MPR images revi ewed. All images stored on PACS. All CT scanners at this facility use dose modulation, iterative reconstruction, and/or weight based d osing when appropriate to reduce radiation dose to as low as reasonably achievable (ALARA). [facility]: Dose Right [facility]: CareDose [facility]: Dose Right [facility]: Teradose 4D [facility]: Smart Lawdingo RADIATION DOSE: CT Rad equipment meets quality standard of care and radiation dose reduction techniq ues were employed. CTDIvol: 6.6 mGy. DLP: 382 mGy-cm.mGy. LIMITATIONS: None. FINDINGS: LOWER CHEST: No significant findings. No nodules or infiltrates. NON-CONTRASTED LIVER, SPLEEN, ADRENALS: Evaluation limited by lack of IV contrast. No identified sign ificant masses. PANCREAS: No masses. No peripancreatic inflammatory changes. GALLBLADDER: Status post interval cholecystectomy. Surgical drainage catheter is looped about the an terior right lobe of the liver and within the gallbladder fossa. No significant fluid collection is appreciated on noncontrast CT. RIGHT KIDNEY AND URETER: No suspicious masses. Assessment limited by lack of IV contrast. Tiny nono bstructive calculus. No hydronephrosis or hydroureter. LEFT KIDNEY AND URETER: No suspicious masses. Assessment limited by lack of IV contrast. Tiny nonob structive calculus. No hydronephrosis or hydroureter. AORTA AND RETROPERITONEUM: No aneurysm. No retroperitoneal masses or adenopathy. BOWEL AND PERITONEAL CAVITY: Status post Nas-en-Y gastric bypass. No obvious masses or inflammatory changes. No free fluid. APPENDIX: Normal. PELVIS, BLADDER, AND ABDOMINAL WALL:No abnormal masses. No free fluid. Bladder normal. BONES: No significant findings. OTHER: No other significant finding. IMPRESSION: Status post interval cholecystectomy. Surgical drainage catheter is looped about the ant erior right lobe of the liver and within the gallbladder fossa. No significant fluid collection is ap preciated on noncontrast CT. COMMENT: Quality ID # [id number]: Final reports with documentation of one or more dose reduction techniques (e.g., Automated exposure control, adjustment of the mA and/or kV according to patient size, use of iterative reconstruction technique) TECHNICAL DOCUMENTATION: JOB ID: [id number] [employer]- All Rights Reserved Reading location - IP/workstation name: [email or web address]
== END ==
LOC: RAD 13:52
PROVIDERS: ATTEND Surgery
DX: K83.9 Disease of biliary tract, unspecified (principal); R10.9 Unspecified abdominal pain
CPT/HCPCS: 74176

== ENCOUNTER → 2019-05-06 | Outpatient (CLI) | payer MEDICAID ==
--- NOTE | 2019-05-06 15:08 | RADIOLOGY REPORT (SQ) ---
EXAM DESCRIPTION: UPPER GI/SM BOWEL COMPLETED DATE/TIME: 05/06/2019 10:53 am REASON FOR STUDY: R11.2 NAUSEA WITH VOMITING, UNSPECIFIED, Z98.84 BARIATRIC SURGERY STATUS R11.2 NA USEA WITH VOMITING, UNSPECIFIED Z98.84 BARIATRIC SURGERY STATUS COMPARISON: None. TECHNIQUE: Under fluoroscopic guidance, patient ingested thin barium. Fluoroscopic spot images and routine radiographic images acquired and stored on PACS. Following evaluation of esophagus and stomach, additional barium administered with serial delayed abd ominal radiographs until colonic identification. Fluoroscopic images recorded of the terminal ileum. FLUOROSCOPY TIME: 6.7 minutes of fluoroscopy was used. 37 images saved to PACS. LIMITATIONS: None. FINDINGS: NEUROMUSCULAR COORDINATION OF SWALLOW: Normal. No aspiration. ESOPHAGEAL MOTILITY: Normal peristalsis. No esophageal spasm. ESOPHAGEAL MUCOSA: Normal mucosa without masses or ulceration. GASTRO-ESOPHAGEAL JUNCTION: Moderate free-flowing gastroesophageal reflux. STOMACH: Status post Nas-en-Y gastric bypass. No evidence of gastric pouch ulceration. Gastroenter ic anastomosis is intact without stricture. PROXIMAL SMALL BOWEL: Postoperative changes from Nas-en-Y gastric bypass. The effarent limb is norm al. The afferent limb is partially visualized with a small amount of contrast extending into the duo denum. JEJUNUM: Normal mucosal pattern. No dilatation, segmentation, strictures or masses. ILEUM: Normal mucosal pattern. No dilatation, segmentation, strictures or masses. TERMINAL ILEUM AND ILEO-CECAL VALVE: Normal mucosal pattern without cobble-stoning or stricture. Nor mal compression. PROXIMAL COLON: Incompletely imaged. No abnormality. NON-GI TRACT STRUCTURES: No significant finding. OTHER: No other significant finding. IMPRESSION: NO RADIOGRAPHIC EVIDENCE OF NAS-EN-Y GASTRIC BYPASS COMPLICATION. ANASTOMOSIS IS PATEN T WITHOUT EVIDENCE OF STRICTURE. NORMAL SMALL BOWEL FOLLOW-THROUGH. MODERATE FREE-FLOWING GASTROESO PHAGEAL REFLUX. COMMENT: Quality ID 145: Final reports for procedures using fluoroscopy that document radiation exp osure indices, or exposure time and number of fluorographic images (if radiation exposure indices are not available) TECHNICAL DOCUMENTATION: JOB ID: [id number] [employer]- All Rights Reserved Reading location - IP/workstation name: [email or web address] [id number]
== END ==
LOC: RAD 08:15
PROVIDERS: ATTEND Surgery
DX: K21.9 Gastro-esophageal reflux disease without esophagitis (principal); R11.2 Nausea with vomiting, unspecified; Z98.84 Bariatric surgery status
CPT/HCPCS: 74249

== ENCOUNTER 2019-05-12 09:04 | Day surgery (SDC) | payer MEDICAID ==
[~2019-05-12 09:04] MED LIST: PROPOFOL INJ 200 MG/20 ML VIAL IV ONE
[2019-05-12] MEDS ORDERED: PROPOFOL INJ 200 MG/20 ML VIAL IV ONE (09:43)
--- NOTE | 2019-05-12 09:46 | Discharge Summary ---
Discharge Summary (SDC) - Discharge Final Diagnosis: Nausea, vomiting, marginal ulcer Date of Surgery: 05/12/19 Discharge Date: 05/12/19 Condition: Stable Treatment or Instructions: Discharge home. Diet as tolerated. Activity: Nonstrenuous. Follow-up with me in 2 weeks at [place] [facility]. Discharge Diet: As Tolerated Respiratory Treatments at Home: Deep Breathing/Coughing, Incentive Spirometer Discharge Activity: Activity As Tolerated Home Care Assistance: None Needed Report the Following to Your Physician Immediately: Shortness of Breath, Nausea, Vomiting, Increase in Pain, Fever over 101 Degrees, Unusual Bleeding
--- NOTE | 2019-05-12 09:49 | Operative Report ---
Nonrecallable Operative Report DATE OF SURGERY: 05/12/19 PREOPERATIVE DIAGNOSIS: Nausea and vomiting, status post gastric bypass surgery in the remote past. POSTOPERATIVE DIAGNOSIS: 1. Nausea and vomiting. 2. History of gastric bypass surgery in the remote past. 3. Marginal ulcer at the gastrojejunal anastomosis. 4. Narrowing at the gastrojejunal anastomosis, likely related to the ulcer. OPERATION: EGD. SURGEON: RONNIE CHAND ANESTHESIA: LMAC TISSUE REMOVED OR ALTERED: None COMPLICATIONS: None apparent ESTIMATED BLOOD LOSS: None PROCEDURE: Drains/implants: None. Procedure in detail: After informed consent was obtained, the patient was brought to the operating room and laid in the left lateral decubitus position. The endoscope was passed down the oropharynx, down the esophagus, and into the stomach. The stomach remnant was insufflated with air. The gastric remnant was then inspected. The mucosa of the gastric remnant appeared normal. The scope was moved into the area of the gastrojejunal anastomosis. There was a marginal ulcer at the area of the anastomosis, with narrowing of the anastomosis. After this was confirmed, the anastomosis was not intubated with the endoscope. The scope was then removed back up into the gastric remnant. Again no evidence of ulceration or irritation on the gastric mucosa was identified. The scope was pulled up into the distal esophagus. No significant hiatal hernia was identified. No evidence of reflux esophagitis was identified. The scope was p ulled up the remainder of the esophagus, which was smooth in contour. There were no masses, lesions, ulcerations, or other abnormality of the esophagus. The scope was removed from the oropharynx, and the procedure was concluded. All sponge, instrument, needle counts were correct x2. Condition: Stable.
[2019-05-12 10:19] VITALS: BP 124/77
== END 2019-05-12 10:22 | disposition home or self-care (01) ==
LOC: END 09:04
PROVIDERS: ATTEND Surgery
DX: K28.9 Gastrojejunal ulcer, unspecified as acute or chronic, without hemorrhage or perforation (principal); Z88.5 Allergy status to narcotic agent; Z98.84 Bariatric surgery status; Z09 Encounter for follow-up examination after completed treatment for conditions other than malignant neoplasm; Z79.899 Other long term (current) drug therapy; I10 Essential (primary) hypertension
CPT/HCPCS: 43235; 00731; J2704; 731